=== PATIENT | female | born 1985 | race Caucasian/White ===

== ENCOUNTER 2025-01-28 08:55 | Inpatient (IN) ==
--- NOTE | 2025-01-28 09:30 | Emergency Department Note ---
History of Present Illness General Chief complaint: Abdominal Pain Stated complaint: CONSISTENT SHARP PAINS NEAR APPENDIX Time Seen by Provider: 01/28/25 09:11 History of Present Illness Maximum Pain Intensity: 7 Patient is a healthy 39-year-old female who presents to the emergency department for evaluation of right lower quadrant abdominal pain. Symptoms started about 14 hours ago. She noted mid, periumbilical abdominal pain that started around 1900 last night, and shortly thereafter began to radiate to the right lower quadrant. Pain is progressively worsened, she currently rates it a 7/10. It is worse with movement and palpation. She admits to nausea, but denies any vomiting. No urinary symptoms or stool changes. Last bowel movement was yesterday morning and was normal. No fever or chills. She did not try taking any medications for her symptoms. History of laparoscopic vaginal hysterectomy, ovaries are spared, done in 09/08. Home Medications Medication Instructions Recorded Confirmed Type oxycodone 5 mg tablet 5 - 10 mg (1 - 2 x 5 mg) PO 01/29/25 Rx .[id number] PRN pain, for initial therapy, max 6 tabs per day #12 tabs Allergies Allergy/AdvReac Type Severity Reaction Status Date / Time No Known Allergies Allergy Verified 03/09/16 01:31 Past Med/Surg History Problem List Right ovarian cyst (Acute) Follicular cyst of right ovary Appendicitis (Acute) PROM (premature rupture of membranes) Medical History No significant past medical history Surgical History History of laparoscopic-assisted vaginal hysterectomy Social History Smoking Status: Former smoker Second Hand Exposure: No; Do You Dip or Chew Tobacco: No; Hx Alcohol Use: Yes Alcohol type: beer, wine and hard liquor Hx Substance Use: No Preferred Language: Czech Communication Ability: Effective Wire Border Assembler Required: No Beliefs That Will Affect Care: None Current Living Situation: Spouse and Family Feels Safe at Home: Yes Review of Systems A total of 10 systems reviewed and were otherwise negative Physical Exam Vital Signs Vital Signs - 24 hr 01/28/25 09:07 01/28/25 09:16 01/28/25 09:21 Temperature 36.5 C Temperature Source Temporal Artery Scan Pulse Rate 96 H 92 H Pulse Rate from SpO2 Sensor 92 H Respiratory Rate 18 20 Blood Pressure 144/107 H 154/98 H Blood Pressure Mean 119 115 Pulse Oximetry 98 98 Oxygen Delivery Method Room Air Sepsis New/Unexplained Change in Mental Status No Sepsis Action Taken by Nursing No Action Required 01/28/25 09:22 01/28/25 09:30 01/28/25 09:42 Temperature Temperature Source Pulse Rate 80 68 Pulse Rate from SpO2 Sensor 68 Respiratory Rate 17 Blood Pressure 155/101 H Blood Pressure Mean 121 Pulse Oximetry 98 Oxygen Delivery Method Sepsis New/Unexplained Change in Mental Status Sepsis Action Taken by Nursing 01/28/25 09:51 01/28/25 09:57 01/28/25 10:00 Temperature Temperature Source Pulse Rate 77 73 Pulse Rate from SpO2 Sensor 78 78 Respiratory Rate 19 17 Blood Pressure 150/98 H Blood Pressure Mean 114 Pulse Oximetry 98 98 Oxygen Delivery Method Sepsis New/Unexplained Change in Mental Status Sepsis Action Taken by Nursing 01/28/25 10:06 01/28/25 10:18 01/28/25 10:30 Temperature Temperature Source Pulse Rate 68 66 Pulse Rate from SpO2 Sensor 68 66 Respiratory Rate 16 15 Blood Pressure 140/94 Blood Pressure Mean 107 Pulse Oximetry 97 97 Oxygen Delivery Method Sepsis New/Unexplained Change in Mental Status Sepsis Action Taken by Nursing 01/28/25 10:48 01/28/25 10:51 01/28/25 10:54 Temperature Temperature Source Pulse Rate 64 62 74 Pulse Rate from SpO2 Sensor 66 63 73 Respiratory Rate 16 17 19 Blood Pressure Blood Pressure Mean Pulse Oximetry 99 100 100 Oxygen Delivery Method Sepsis New/Unexplained Change in Mental Status Sepsis Action Taken by Nursing 01/28/25 11:00 Temperature Temperature Source Pulse Rate Pulse Rate from SpO2 Sensor Respiratory Rate Blood Pressure 163/104 H Blood Pressure Mean 116 Pulse Oximetry Oxygen Delivery Method Sepsis New/Unexplained Change in Mental Status Sepsis Action Taken by Nursing CONSTITUTIONAL: Patient is a well-appearing 39-year-old female who is awake and alert and laying on the gurney. is at the bedside. EYES: Pupils equal, round, reactive to light and accommodation. EOMs intact without nystagmus. Sclera are anicteric. CARDIOVASCULAR: Regular rate and rhythm. RESPIRATORY: Breath sounds equal and clear to auscultation. ABDOMEN: Bowel sounds are present. Well-healed surgical scars are noted. The abdomen is soft, nondistended, tender to percussion and palpation in the right lower quadrant with voluntary guarding. No rebound or referred rebound tenderness. No CVA tenderness. INTEGUMENTARY: No lesions or rash, normal skin turgor. LYMPH: No lymphadenopathy. Course Course The patient was seen and assessed as above. External medical records are reviewed. She presents to the emergency department for evaluation of right lower quadrant abdominal pain that started last evening. IV lock was initiated. CBC with differential, CMP, lipase and urinalysis were obtained. She was offered but declined medication for discomfort. CT scan of the abdomen and pelvis with IV contrast was ordered. Diagnostics, as interpreted by me: Laboratory studies: Normal white count at 8300, neutrophilic predominance noted. No anemia or thrombocytopenia. No significant electrolyte imbalance requiring correction, no HAN or worrisome transaminitis. Lipase is normal and urine microscopy is clear. Imaging studies: CT scan of the abdomen and pelvis with IV contrast notes acute uncomplicated appendicitis. No evidence for perforation or abscess. Incidental 2 cm right ovarian cyst noted. CT scan findings and laboratory studies reviewed with the patient and her spouse. Consultation placed with general surgery, Dr. Dougherty/Velvet Vogel PA-C. Please refer to surgical H&P for further information. They would like to admit the patient for antibiotics and monitoring. Differential diagnosis: UTI, pyelonephritis, kidney stone, appendicitis, ovarian cyst, ovarian torsion, bowel obstruction, perforation, abscess, mass or malignancy, scarring or adhesions, hernia, shingles, among others. Administered Medications Discontinued Medications Epinephrine HCl (Epinephrine Inj 1 Mg/Ml Amp) Confirm Administered Dose 1 mg .ROUTE .[employer]-MED ONE Stop: 01/29/25 07:20 Last Admin: 01/29/25 08:04 Dose: 0.1 mg Documented By: CLARENCE Hydralazine HCl (Hydralazine Hcl 20 Mg/Ml Vial) 5 mg IV Q6H PRN PRN Reason: Hypertension Stop: 02/27/25 21:36 Last Admin: 01/28/25 22:07 Dose: 5 mg Documented By: MARYANN Piperacillin Sod/Tazobactam Sod (Zosyn) 4.5 gm in 100 mls @ 25 mls/hr IV Q8H TATY; Protocol Stop: 02/01/25 17:59 Last Infusion: 01/29/25 06:05 Dose: Infused Documented By: Admin: 01/29/25 02:18 Dose: 25 mls/hr Documented By: Infusion: 01/28/25 22:08 Dose: Infused Documented By: Admin: 01/28/25 17:24 Dose: 25 mls/hr Documented By: EMEKA Sodium Chloride (Nss) 500 mls @ 100 mls/hr IV .Q5H TATY Stop: 01/28/25 16:56 Last Infusion: 01/28/25 17:32 Dose: Infused Documented By: Admin: 01/28/25 12:07 Dose: 100 mls/hr Documented By: GONSALO Piperacillin Sod/Tazobactam Sod (Zosyn) 4.5 gm in 100 mls @ 200 mls/hr IV ONE ONE; Protocol Stop: 01/28/25 12:29 Last Infusion: 01/28/25 13:08 Dose: Infused Documented By: Admin: 01/28/25 12:07 Dose: 200 mls/hr Documented By: GONSALO Lactated Ringer's (Lr) 1,000 mls @ 80 mls/hr IV .[id number] [facility] Stop: 01/30/25 09:11 Last Admin: 01/29/25 09:50 Dose: 80 mls/hr Documented By: ODILON Ioversol (Optiray 320 100ml) 94 ml IV ONCE ONE Stop: 01/28/25 10:36 Last Admin: 01/28/25 10:35 Dose: 94 ml Documented By: DANIEL Lidocaine HCl (Lidocaine 1% Local 20 Ml Vial) Confirm Administered Dose 20 ml .ROUTE .STK-MED ONE Stop: 01/29/25 07:20 Last Admin: 01/29/25 08:11 Dose: 8 ml Documented By: [id number] Morphine Sulfate (Morphine Sulfate 2 Mg/Ml Carp) 2 mg IV Q3H PRN PRN Reason: Pain (6,7,8,9,10) Stop: 02/11/25 11:56 Last Admin: 01/28/25 14:22 Dose: 2 mg Documented By: EMEKA Morphine Sulfate (Morphine Sulfate 2 Mg/Ml Carp) 2 mg IV Q2H PRN PRN Reason: Pain (6,7,8,9,10) Stop: 02/11/25 11:56 Last Admin: 01/28/25 19:50 Dose: 2 mg Documented By: MARYANN Medical Decision Making Differential Diagnosis See ED Course. Medical Records Attestation: I reviewed the patient's medical records. Home Medications Current Medication List: was personally reviewed by me Laboratory Data Attestation: I reviewed the patient's lab results. 01/29/25 05:39 01/29/25 05:39 Lab Results 01/28/25 01/28/25 Range/Units 09:21 09:40 WBC 8.31 (4.8-10.8) K/ul RBC 4.09 L (4.20-5.40) M/uL Hgb 14.0 (12.0-16.0) g/dl Hct 38.7 (37.0-47.0) % MCV 94.6 (80.0-100.0) fL MCH 34.2 H (25.0-34.0) pg MCHC 36.2 H (32.0-36.0) g/dL RDW Std Deviation 38.4 (36.4-46.3) fL RDW Coeff of Riki 11.0 L (11.5-14.5) % Plt Count 222 (130-400) K/uL MPV 9.0 L (9.4-12.4) fL Immature Gran % (Auto) 0.4 % Neut % (Auto) 78.3 % Lymph % (Auto) 14.8 % [place] % (Auto) 6.0 % Eos % (Auto) 0.1 % Baso % (Auto) 0.4 % Neut # (Auto) 6.51 H (1.40-6.50) K/uL Lymph # (Auto) 1.23 (1.20-3.40) K/uL [place] # (Auto) 0.50 (0.11-0.59) K/uL Eos # (Auto) 0.01 (0.00-0.50) K/uL Baso # (Auto) 0.03 (0.00-0.20) K/uL Immature Gran # (Auto) 0.03 (0.01-0.20) K/uL Sodium 133 L (136-145) mmol/L Potassium 3.6 (3.5-5.1) mmol/L Chloride 100 (98-107) mmol/L Carbon Dioxide 28 (21-32) mmol/L Anion Gap 5 (3-11) BUN 8 (6-23) mg/dl Creatinine 0.89 (0.6-1.2) mg/dl Est Cr Clr Drug Dosing 77.5 ml/min eGFR 84.00 BUN/Creatinine Ratio 9.0 L (10-20) Glucose 94 (70-99(Fasting)) mg/dl Calcium 9.6 (8.6-10.3) mg/dl Total Bilirubin 1.2 H (0.2-1.0) mg/dl AST 15 (13-39) U/L ALT 9 (7-52) U/L Alkaline Phosphatase 43 (34-104) U/L Total Protein 7.6 (6.0-8.3) gm/dl Albumin 4.4 (3.4-5.0) gm/dl Globulin 3.2 (2.5-4.0) gm/dl Albumin/Globulin Ratio 1.4 (0.9-2) Lipase 15 (11-82) U/L Urine Color Yellow Urine Appearance Clear (Clear) Urine pH 6.5 (4.5-7.5) Ur Specific [place] 1.011 (1.000-1.030) Urine Protein Negative (Negative) Urine Glucose (UA) Negative (Negative) Urine Ketones Negative (Negative) Urine Blood Negative (Negative) Urine Nitrite Negative (Negative) Urine Bilirubin Negative (Negative) Urine Urobilinogen Negative (Negative) Ur Leukocyte Esterase Negative (Negative) Imaging Data Attestation: I personally reviewed and interpreted this imaging study as follows: Radiologist's Impression: Abdomen/Pelvis CT 01/28/25 09:[address] WITH IV CONTRAST CT DOSE: 457.38 mGy.cm HISTORY: RLQ PAIN, HYSTER WITH PRESERVED OVARIES TECHNIQUE: Multiaxial CT images of the abdomen and pelvis were performed following the IV administration of 94 cc of Optiray, sagittal and coronal reconstructions were done. A dose lowering technique was utilized adhering to the principles of ALARA. COMPARISON STUDY: None FINDINGS: The appendix is hyperemic and there is a small amount of periappendiceal inflammatory stranding in the right lower quadrant. In addition, the patient has 2 ring-enhancing follicular cysts in the right adnexa. There is a small amount of fluid in the cul-de-sac. The uterus is absent. The left ovary is not enlarged. The lung bases and bone windows are negative for acute findings. There is mild hepatic steatosis with no focal liver lesion identified. There is a small hypoattenuating left adrenal nodule. The kidneys and spleen are unremarkable. The pancreas is unremarkable. The gallbladder and bile ducts are negative. There is no bowel obstruction or free air. There is no ascites. There is no aortic aneurysm or periaortic adenopathy. The unopacified urinary bladder1 is unremarkable. IMPRESSION: Uncomplicated appendicitis with appendiceal hyperemia and mild periappendiceal inflammatory stranding. No evidence of perforation or abscess. 2 enhancing follicular cyst in the right adnexa are likely to be incidental. Additional confidence in this opinion could be obtained with pelvic ultrasound if clinically warranted. ACT 112: Negative or not required by law. The above report was generated using voice recognition software. It may contain grammatical, syntax or spelling errors. Electronically signed by: Araceli Ruiz M.D. 01/28/2025 10:56 AM MDM Narrative See ED Course. Impression & Plan Appendicitis, Right ovarian cyst Discharge Plan Visit Data Chief Complaint: Abdominal Pain Stated Complaint: CONSISTENT SHARP PAINS NEAR APPENDIX ED Provider: Miguel Jackson ED Midlevel Provider: Mirella Joseph Discharge Problem: Appendicitis, Right ovarian cyst Patient Disposition: Admitted As Inpatient Discharge Instructions Interventions: ED Discharge Assessment Last Done: 01/28/25 11:57
[2025-01-28 10:04] LABS: Basophils # (auto) 0.03 K/uL (0.00-0.20); Basophils % (auto) 0.4 %; Eosinophils # (auto) 0.01 K/uL (0.00-0.50); Eosinophils % (auto) 0.1 %; Hematocrit (blood only) 38.7 % (37.0-47.0); Immature Granulocytes # (auto) 0.03 K/uL (0.01-0.20); Immature Granulocytes % (auto) 0.4 %; Lymphocytes # (auto) 1.23 K/uL (1.20-3.40); Lymphocytes % (auto) 14.8 %; Mean Corpuscular Hemoglobin 34.2 pg (25.0-34.0); Mean Corpuscular Hgb Conc 36.2 g/dL (32.0-36.0); Mean Corpuscular Volume 94.6 fL (80.0-100.0); Neutrophils # (auto) 6.51 K/uL (1.40-6.50); Neutrophils % (auto) 78.3 %; Platelet Count 222 K/uL (130-400); RDW Standard Deviation 38.4 fL (36.4-46.3); Red Blood Count 4.09 M/uL (4.20-5.40); White Blood Count 8.31 K/ul (4.8-10.8)
[2025-01-28 10:04] LABS: Appearance Urine Clear (Clear); Bilirubin Urine Negative (Negative); Blood Urine Negative (Negative); Color Urine Yellow; Glucose Urine UA Negative (Negative); Ketones Urine Negative (Negative); Leukocyte Esterase Urine Negative (Negative); Nitrite Urine Negative (Negative); Protein Urine Negative (Negative); Specific Gravity Urine 1.011 (1.000-1.030); Urobilinogen Urine Negative (Negative); pH Urine 6.5 (4.5-7.5)
[2025-01-28 10:29] LABS: Albumin Globulin Ratio 1.4 (0.9-2); Albumin Level 4.4 gm/dl (3.4-5.0); Bilirubin,Total 1.2 mg/dl (0.2-1.0); Calcium 9.6 mg/dl (8.6-10.3); Creatinine Clr Calc Pharmacy 77.5 ml/min; Globulin 3.2 gm/dl (2.5-4.0); Potassium 3.6 mmol/L (3.5-5.1); Total Protein 7.6 gm/dl (6.0-8.3)
[2025-01-28] MEDS: OPTIRAY 320 100ml IV ONE (10:35)
--- NOTE | 2025-01-28 10:57 | CT Scan Report ---
ABDOMEN AND PELVIS CT WITH IV CONTRAST CT DOSE: 457.38 mGy.cm HISTORY: RLQ PAIN, HYSTER WITH PRESERVED OVARIES TECHNIQUE: Multiaxial CT images of the abdomen and pelvis were performed following the IV administrat ion of 94 cc of Optiray, sagittal and coronal reconstructions were done. A dose lowering technique w as utilized adhering to the principles of ALARA. COMPARISON STUDY: None FINDINGS: The appendix is hyperemic and there is a small amount of periappendiceal inflammatory stran ding in the right lower quadrant. In addition, the patient has 2 ring-enhancing follicular cysts in t he right adnexa. There is a small amount of fluid in the cul-de-sac. The uterus is absent. The left o vary is not enlarged. The lung bases and bone windows are negative for acute findings. There is mild hepatic steatosis with no focal liver lesion identified. There is a small hypoattenuati ng left adrenal nodule. The kidneys and spleen are unremarkable. The pancreas is unremarkable. The ga llbladder and bile ducts are negative. There is no bowel obstruction or free air. There is no ascites. There is no aortic aneurysm or periao rtic adenopathy. The unopacified urinary bladder1 is unremarkable. IMPRESSION: Uncomplicated appendicitis with appendiceal hyperemia and mild periappendiceal inflammato ry stranding. No evidence of perforation or abscess. 2 enhancing follicular cyst in the right adnexa are likely to be incidental. Additional confidence in this opinion could be obtained with pelvic ultrasound if clinically warranted. ACT 112: Negative or not required by law. The above report was generated using voice recognition software. It may contain grammatical, syntax o r spelling errors. Electronically signed by: Araceli Ruiz M.D. 01/28/2025 10:56 AM
--- NOTE | 2025-01-28 11:51 | History & Physical Report ---
Date of Service January 28, 2025 Assessment & Plan (1) Appendicitis: Plan: This is a 39yF with a PSH of hysterectomy who presents to the [facility] ED on 01/28/25 with complaints of right lower quadrant abdominal pain that started yesterday evening. This was associated with nausea, no vomiting or fevers. Because of her pain she presented to the ER for evaluation. She underwent a CT a/p that revealed findings concerning for uncomplicated appendicitis with appendiceal hyperemia and mild periappendiceal inflammatory stranding. No evidence of perforation or abscess. It also shows enhancing follicular cyst in the right adnexa. Patient denies having experienced pain similar to this before. Vitals show she is hypertensive 160s/100s, HR 60-70s, she is afebrile. Labs show a normal WBC 8.3, Hbg 14, Cr 0.9. On exam patient's abdomen is soft, with mild lower abdominal bloating, and pain to palpation in the RLQ and supra pubic regions. CT scan showing concern for appendicitis along with R follicular cysts which could also be a contributing factor to her pain. We discussed the findings with the patient and recommending admitting the patient for IV abx and supportive care (IVF, prn pain and nausea control) and to see how she fairs. We will allow her clears and make her NPO at midnight in the event she will ultimately require laparoscopic appendectomy pending her ongoing clinical picture. We will follow closely. Patient seen/examined with Dr. Dougherty. (2) Follicular cyst of right ovary: History of Present Illness Primary Care Provider: Tre Carmona MD This is a 39yF with a PSH of hysterectomy in 2022 who presents to the [facility] ED on 01/28/25 with complaints of right lower quadrant abdominal pain. Patient reports her pain started yesterday evening abruptly while cooking dinner. It started off to the right side of her abdomen and is now located in the RLQ and suprapubic regions. This was associated with nausea, no vomiting or fevers. Because of her pain she presented to the ER for evaluation. She underwent a CT a/p that revealed findings concerning for uncomplicated appendicitis with appendiceal hyperemia and mild periappendiceal inflammatory stranding. No evidence of perforation or abscess. It also shows enhancing follicular cyst in the right adnexa. Patient denies having experienced pain similar to this before. Allergies Allergy/AdvReac Type Severity Reaction Status Date / Time No Known Allergies Allergy Verified 03/09/16 01:31 Home Medications Medication Instructions Recorded Confirmed Type No Known Home Medications 01/28/25 01/28/25 History Past Med/Surg History Problem List Right ovarian cyst (Acute) Follicular cyst of right ovary Appendicitis (Acute) PROM (premature rupture of membranes) Medical History No significant past medical history Surgical History History of laparoscopic-assisted vaginal hysterectomy Social History Smoking Status: Former smoker Second Hand Exposure: No; Do You Dip or Chew Tobacco: No; Tobacco Cessation Education Requested by Patient: No Hx Alcohol Use: Yes Alcohol type: beer, wine and hard liquor Hx Substance Use: No Preferred Language: Burkinan Communication Ability: Effective Auger Mill Operator Required: No Beliefs That Will Affect Care: None Current Living Situation: Spouse and Family Other Information That Helps Us Care for You: No Feels Safe at Home: Yes Safety Concerns: Feels Safe At This Time Review of Systems Constitutional: no fever and no chills Respiratory: no cough and no dyspnea Cardiovascular: no chest pain Gastrointestinal: + abdominal pain, + bloating and + nause a; no vomiting Physical Exam Physical Exam: awake, alert. tearful when palpating abdomen Constitutional: well developed and well nourished Respiratory: normal respiratory effort Cardiovascular: Rate/Rhythm: regular rate Gastrointestinal (Abdomen): Inspection/Auscultation: + abdomen distended (low abdomen bloating) Percussion/Palpation: + abdomen tender (ttp in rlq and suprapubic regions) and abdomen soft Results & Data Results & Data Vital Signs (Past 12 Hours) Vital Signs Temp Pulse Resp BP Pulse Ox O2 Del Method 01/28/25 11:00 163/104 H 01/28/25 10:54 74 19 100 01/28/25 10:51 62 17 100 01/28/25 10:48 64 16 99 01/28/25 10:30 140/94 01/28/25 10:18 66 15 97 01/28/25 10:06 68 16 97 01/28/25 10:00 150/98 H 01/28/25 09:57 73 17 98 01/28/25 09:51 77 19 98 01/28/25 09:42 68 17 98 01/28/25 09:30 155/101 H 01/28/25 09:22 80 01/28/25 09:21 92 H 20 98 01/28/25 09:16 154/98 H 01/28/25 09:07 97.7 F 96 H 18 144/107 H 98 Room Air Diagnostic Findings ABDOMEN AND PELVIS CT WITH IV CONTRAST CT DOSE: 457.38 mGy.cm HISTORY: RLQ PAIN, HYSTER WITH PRESERVED OVARIES TECHNIQUE: Multiaxial CT images of the abdomen and pelvis were performed following the IV administration of 94 cc of Optiray, sagittal and coronal reconstructions were done. A dose lowering technique was utilized adhering to the principles of ALARA. COMPARISON STUDY: None FINDINGS: The appendix is hyperemic and there is a small amount of periappendiceal inflammatory stranding in the right lower quadrant. In addition, the patient has 2 ring-enhancing follicular cysts in the right adnexa. There is a small amount of fluid in the cul-de-sac. The uterus is absent. The left ovary is not enlarged. The lung bases and bone windows are negative for acute findings. There is mild hepatic steatosis with no focal liver lesion identified. There is a small hypoattenuating left adrenal nodule. The kidneys and spleen are unremarkable. The pancreas is unremarkable. The gallbladder and bile ducts are negative. There is no bowel obstruction or free air. There is no ascites. There is no aortic aneurysm or periaortic adenopathy. The unopacified urinary bladder1 is unremarkable. IMPRESSION: Uncomplicated appendicitis with appendiceal hyperemia and mild periappendiceal inflammatory stranding. No evidence of perforation or abscess. 2 enhancing follicular cyst in the right adnexa are likely to be incidental. Additional confidence in this opinion could be obtained with pelvic ultrasound if clinically warranted. ACT 112: Negative or not required by law. The above report was generated using voice recognition software. It may contain grammatical, syntax or spelling errors. Electronically signed by: Araceil Ruiz M.D. 01/28/2025 10:56 AM Supervising Physician Co-Signing Physician Notes As per Velvet Petersen physician medical administrative assistant The patient developed some periumbilical pain migrated down towards right lower quadrant suprapubic area some nausea at the previous hysterectomy CT scan findings were reviewed her vitals also reviewed hypertension noted no past history of such may be related to pain Abdominal findings the abdomen slightly distended she does have pain in her right lower quadrant but also in the suprapubic area not well localized At this point I recommended that we try antibiotic and try to avoid surgery for etiology it is hard to differentiate whether may be related to ovarian process or the appendix she does have some fluid down in the cul-de-sac Will reevaluate her clinically and see how she does and pending those findings appropriate recommendations will be made PG Care Time/CCT Total # of Minutes Spent Total Time Spent with Patient: Total time spent is greater than 50% in coordination of care (as documented) at patient's floor/unit and/or counseling patient: Coding Level of Care Code 81858 INT INP/OBS CARE MIN Diagnoses Appendicitis K37 Follicular cyst of right ovary N83.01
[2025-01-28] MEDS ORDERED: ONDANSETRON INJ 2 MG/ML 2 ML VIAL IV PRN (11:57)
[2025-01-28] MEDS ORDERED: MoRPHine SULFATE 2 MG/ML CARP IV PRN (11:57)
[2025-01-28] MEDS ORDERED: ACETAMINOPHEN 1,000 MG/100 ML VIAL IV PRN (11:57)
[2025-01-28] MEDS: SODIUM CHLORIDE 0.9% 500 ML IV SCH (12:07)
[2025-01-28] MEDS: PIPERACILLIN/TAZOBACTAM 4.5 GM/100 ML BAG IV ONE (12:07)
[2025-01-28] MEDS: MoRPHine SULFATE 2 MG/ML CARP IV PRN ×2 (14:22→19:50)
--- OUTSIDE RECORDS SUMMARY | 2025-01-28 17:08 | External Medical Summary | Summary of Care ---
Author Name Unknown Organization [facility] Address [address] [place] [address] Phone [phone] Care Team Providers Care Manager Office Services Name Role Phone Unavailable Primary Care Provider Unavailabl e Reason for Visit * Reason Comments Allergy New Pt * Evaluate & Treat - Unlimited Visits (Within 10 days (routine)) - Pending Review Specialty Diagnoses / Procedures Referred By Kasia lorenzo Referred To Contact Allergy & Immunology / Allergy and Immunology Diagnoses Latisha Prado MD Phone: tel: fax: Referral ID Status Reason Start Date Expiration Date Visits Requested Visits Authorized [id number] Pending Review Specialty Services Required [phone] Encounter Details Date Type Department Care Team (Late st Contact Info) Description 01/06/2025 1:00 PM EST Office Visit Allergy/Immunology [facility] [place] [address] [place] [address] Mark Cruz MD [address] [place] [address] Chronic urticaria*; Pruritus Allergies No known active allergiesdocumented as of this encounter (statuses as of 01/06/2025) Medications Doxycycline Monohydrate 100 MG Oral Capsule Take 1 Capsule by mouth in the morning and 1 Capsule before bedtime. Take with meals (avoid taking with dairy products or iron supplements) and a large glass of water. Do not lie flat for 30 min after taking the medication.. 180 Capsule 4 01/06/20 25 Active Azelaic Acid 15 % External Gel (Finacea) After skin is thoroughly washed and patted dry, gently but thoroughly massage a thin film onto the affected area twice daily 30 g 7 4 Active Montelukast Sodium 10 MG Oral Tablet (Singulair) Take 1 Tablet by mouth in the morning. 90 Tablet 3 4 Active documented as of this encounter (statuses as of 01/06/2025) Active Problems Problem Noted Date Diagnosed Date Rosacea 09/07/2024 Family history of thyroid disease 09/07/2024 Hives 09/07/2024 PROM (premature rupture of membranes) 09/08/2023 Cat bite 09/08/2023 Moderate dysplasia of cervix (LIZ II) 07/02/2023 Severe dysplasia of cervix (LIZ III) 06/02/2023 Pap smear of cervix with ASCUS, cannot exclude H GSIL 06/02/2023 High grade squamous intraepi thelial lesion (HGSIL), grade 3 LIZ, on biopsy of cervix 01/16/2023 Atypical squamous cells fiordaliza ot exclude high grade squamous intraepithelial lesion on cytologic smear of cervix (ASC-H) 12/25/2022 Overview (12/25/2022): Needs colposcopy 12/20/22 PAP ASC- cannot exclude HSIL HPV neg Abdominal pain, epigastric 06/13/2021 Acute gastritis without hemorrhage 06/13/2021 Anemia 06/13/2021 Diarrhea 06/13/2021 Well adult exam 06/25/2013 Overview (10/08/2023): 10/09 heme workup for bleeding disorders WNL. h/o right sided kidney stone 07/06/2009 OCD (obsessive compulsive disorder) Generalized anxiety disorder Overview (09/26/2015): Stable, doing well, as of 2014. No meds, feels well. documented as of this encounter (statuses as of 01/06/2025) Resolved Problems Problem Noted Date Diagnosed Date Resolved Date Cellulitis 09/08/2023 09/07/2024 ADVANCE DIRECTIVE INFORMATION 01/31/2016 09/20/2024 Overview (09/21/2007): No, Advance Directive brochure offered , patient declined. Encounter for supervision of other normal 08/01/2015 03/22/2016 Overview (03/19/2016): Patient received flu vaccine. 08/29/2015 Sandy Lynn RN Had difficult time first baby, [place]. Undecided about this /baby. Had epidural last labor. Very satisfied with labor experience at [facility] last . Baby: "Jenny Santos" Patient received Tdap 02/26/2016 Marcy Fisher RN ICD-10 update of inactive term Encounter for supervision of other normal 12/31/2013 01/07/2014 Overview (03/19/2016): ICD-10 update of inactive term Encounter for supervision of other normal 08/08/2009 02/27/2010 Overview (03/19/2016): Patient received flu vaccine. 08/08/2009 Sandy Lynn RN ICD-10 update of inactive term INFORMATION 07/06/2009 12/31/2013 Anxiety state 12/25/2003 07/06/2009 Major depressive disorder 12/25/2003 Overview (09/09/2017): ICD-10 update of inactive term Encounter for surveillance o f other contraceptive 12/16/2003 07/06/2009 Overview (08/19/2019): ICD-10 update of inactive term Tobacco abuse counseling 08/2015 documented as of this encounter (statuses as of 01/06/2025) Immunizations Name Administration Dates Next Due Pneumococcal Polysaccharide PPV23 (Pneumovax) Seasonal Influenza Vac., MDV, IM, 0.5 mL (Fluzon e) 08/08/2009 Seasonal Influenza, Quadrivalent, No Preserve, I M 08/29/2015 TDAP (age 10 and older)(Boostrix) 02/26/2016,11/2014 documented as of this encounter Social History Tobacco Use Types Packs/Day Years Used Date Smoking Tobacco: Former Cigarettes 0.3 6 0 04/17/2009 - 04/17/2015 Passive Smoke Exposure: Current Smokeless Tobacco: Never Tobacco Cessation:Counseling Given: Not Answered Comments:1-2 cigs a day, quit with Alcohol Use Standard Drinks/Week Comments Yes 0 (1 standard drink = 0.6 oz pur e alcohol) occassionally PHQ-2 Answer Date Recorded PHQ Adult Total Score 0 09/07/2024 Hunger Vital Sign Answer Date Recorded Within the past 12 months, y ou worried that your food would run out before you got the money to buy more. Never true 09/07/20 24 Within the past 12 months, t he food you bought just didn't last and you didn't have money to get more. Never true 09/07/2024 Childcare Answer Date Recorded Do you feel overwhelmed with taking care of a child, family member or friend? No 09/07/2024 Does your family need help f inding childcare? (Household - for ages 0-17 years) Not on file 09/07/2024 Clothing Answer Date Recorded Have you been unable to get clothing when it was really needed? No 09/07/2024 Is your family able to get c lothes or diapers when needed? (Household - for ages 0-17 years) Not on file 09/07/2024 Personal Safety Answer Date Recorded Do you feel unsafe or have concerns for your saf ety? No 09/07/2024 Do you have concerns for you r family's safety? (Household - for ages 0-17 years) Not on file 09/07/2024 Utilities Answer Date Recorded Do you have trouble paying y our heating, water, or electric bill? No 09/07/2024 Is your family able to pay t he heat, water, or electric bill? (Household - for ages 0-17 years) Not on file 09/07/2024 Does your family have access to good internet? (Household - for ages 0-17 years) Not on file 09/07/2024 Employment Status Answer Date Recorded Are you unemployed or without regular income? No 09/07/2024 Does the household have a re gular source of income? (Household - for ages 0-17 years) Not on file 09/07/2024 Social Connections Answer Date Recorded How often do you feel lonely or isolated from th ose around you? Never 09/07/2024 Financial Resource Strain Answer Date R ecorded Do you have any trouble payi ng for your medications, or do you think you might in the future? No 09/07/2024 Does your family have troubl e paying for medicine? (Household - for ages 0-17 years) Not on file 09/07/2024 Transportation Needs Answer Date Record ed Do you have trouble getting a ride to medical visits or work? (Adult - for ages 18 years and over) Not on file 09/07/2024 Does your family have a hard time getting a ride to doctors visits? (Household - for ages 0-17 years) Not on file 09/07/2024 Has lack of transportation k ept you from medical appointments, meetings, work, or from getting things needed for daily living? Check all that apply. No 09/07/2024 Do you (or your family) have trouble finding or paying for a ride (transportation)? (Household - for ages 0-17 years) Not on file 09/07/2024 Housing Stability Answer Date Recorded Do you currently live in a s helter or have no steady place to sleep at night? No 09/07/2024 Do you think you are at risk of becoming homeless? (Adult - for ages 18 years and over) Not on file 09/07/2024 Does your family worry about paying for your home or becoming homeless? (Household - for ages 0-17 years) Not on file 1 Are you homeless or worried that you might be in the future? No 09/07/2024 Are you (or your family) aron eless or worried that you might be in the future? (Household - for ages 0-17 years) Not on file Food Insecurity Answer Date Recorded Do you need food for this week? No 09/07/2024 Are you able to get enough f ood for your family? (Household - for ages 0-17 years) Not on file 09/07/2024 Does your family need food t his week? (Household - for ages 0-17 years) Not on file 09/07/2024 Do you always have enough fo od for your family? (Household - for ages 0-17 years) Not on file 09/07/2024 Food Insecurity Answer Date Recorded Within the past 12 months, y ou worried that your food would run out before you got the money to buy more. Never true 09/07/20 24 Within the past 12 months, t he food you bought just didn't last and you didn't have money to get more. Never true 09/07/2024 Do you need food for this week? 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 Answer Date of Assessment Author No 08/27/2023 3:05 PM Dior Nelson RN * Are you blind or do you have serious difficulty seeing, even when wearing glasses? Answer Date of Assessment Author No 08/27/2023 3:05 PM Dior Nelson RN * Do you have serious difficulty walking or climbing stairs? (5 years old or older) Answer Date of Assessment Author No 08/27/2023 3:05 PM Dior Nelson RN * Do you have difficulty dressing or bathing? (5 years old or older) Answer Date of Assessment Author No 08/27/2023 3:05 PM Dior Nelson RN * Because of a physical, mental, or emotional condition, do you have difficulty doing errands alone such as visiting a doctors office or shopping? (15 years old or older) Answer Date of Assessment Author No 08/27/2023 3:05 PM Dior Nelson RN documented as of this encounter Mental Status * Because of a physical, mental, or emotional condition, do you have serious difficulty concentrating, remembering, or making decisions? (5 years old or older) Answer Entry Date Author No 08/27/2023 3:05 PM Dior Nelson RN documented in this encounter Progress Notes * Mark Cruz MD - 01/06/2025 12:47 PM EST REASON FOR VISIT: Chief Complaint Patient presents with Allergy New Pt HPI: Delma is a pleasant 39-year-old female who presents to our office as a new patient after being referred by Latisha Benton MD for initial consultation of urticaria. The patient reports that starting in June of 2024, she has been experiencing hives. She states that this started at work but it can occur at any place including work home or any other location. She states that originally, her hives occurred on a daily basis. Currently, they are still occurring but now approximately 3 times perweek. Her hives typically last only 10 minutes if she applies hydrocortisone immediately. She is unsure how long the hives would last if she did not apply hydrocortisone. Typically the hives will occur on her neck, back, and upper chest. Occasionally she will get them on her lower extremities. She has not experienced any lip swelling, tongue swelling, nor throat involvement. She at 1st attributedto stress a sometimes she will have stressful days in the hives would not occur. This was discussedwith her primary care practitioner who put her on Singulair 10 mg daily. The patient reports that the Singulair has not been effective at all and provide 0% relief. She has not tried any other treatments other than hydrocortisone and Singulair. Upon further questioning, she reports no association with her environment and there have been no changes to her environment. She will occasionally get signs and symptoms of allergic rhinitis in the spring but no symptoms during other times of the year. She reports no association with any foods nor medications. She reports no association with insect stings. As noted above, there may be a slight association with stress/anxiety. She reports no hormonal changes nor relation with NSAIDs. She does occasionally take ibuprofen for her neck and back that has not seen worsening of her urticaria with ibuprofen. She does state that is scratching, pressure, and friction are aggravating factors. She reports no relation to heat/humidity nor colder temperatures. She reports no recent illnesses. She has no history of autoimmunity. REVIEW OF SYSTEMS Skin: itching, hives Eyes: negative Ears/Nose/Throat: negative Respiratory: No history of cough, wheezing, chest tightness or shortness of breath and No history of bronchial asthma Cardiovascular: negative Gastrointestinal: No history of heartburn, dyspepsia, or acid reflux disease. Genitourinary: negative Musculoskeletal: pt denies significant joint pain or stiffness Neurologic: negative Psychiatric: negative Hematologic/Lymphatic/Immunologic: negative Endocrine: negative Constitutional: none Past Medical History: Diagnosis Date Calculus of kidney 11/17/2004 right sided Closed fracture of carpal bone 11/19/1994 wrist fracture left Generalized anxiety disorder 11/17/2014 stopped for High grade squamous intraepithelial lesion (HGSIL), grade 3 LIZ, on biopsy of cervix Idiopathic scoliosis Scoliosis, no bracing or surgery needed INFORMATION 16 mono OCD (obsessive compulsive disorder) Tobacco abuse counseling Varicella without complication age 6 Past Surgical History: Procedure Laterality Date , INDUCED BY D&E 01/10/2014 D&E x3, last 12/03/03 CYSTOSCOPY N/A 08/27/2023 CYSTOURETHROSCOPY performed by Jolynn Valentine MD at OR [facility] DENTAL SURGERY PROCEDURE NEC LAPAROSCOPY TOTAL HYSTX, UTERUS 250GM OR LESS TUBE/OVARY Bilateral 08/27/2023 LAPAROSCOPIC HYSTERECTOMY REMOVAL TUBES AND/OR OVARIES FOR UTERUS 250GM OR LESS performed by Jolynn Valentine MD at OR [facility] PARTIAL HYSTERECTOMY 08/2023 Current Outpatient Medications Medication Sig Dispense Refill Doxycycline Monohydrate 100 MG Oral Capsule Take 1 Capsule by mouth in the morning and 1 Capsule before bedtime. Take with meals (avoid taking with dairy products or iron supplements) and a large glass of water. Do not lie flat for 30 min after taking the medication.. 180 Capsule 0 Montelukast Sodium 10 MG Oral Tablet (Singulair) Take 1 Tablet by mouth in the morning. 90 Tablet 3 Azelaic Acid 15 % External Gel (Finacea) After skin is thoroughly washed and patted dry, gently butthoroughly massage a thin film onto the affected area twice daily 30 g 7 No current facility-administered medications for this visit. Allergies as of 01/06/2025 (No Known Allergies) Family History Problem Relation Name Age of Onset Other (Other) Mother Hepatitis C No Known Problems Father Rheum arthritis Sister No Known Problems Daughter No Known Problems Daughter Osteoporosis Grandmother (Maternal) Other (Other) Grandfather (Maternal) MVA No Known Problems Grandmother (Paternal) No Known Problems Grandfather (Paternal) Breast Cancer No significant family history Social History Socioeconomic History Marital status: Single Spouse name: Not on file Number of children: Not on file Years of education: Not on file Highest education level: Not on file Occupational History 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 Comment: bobby 01/21/23 Other Topics Concern Service Not Asked Blood Transfusions Not Asked Caffeine Concern Not Asked Occupational Exposure Not Asked Hobby Hazards Not Asked Sleep Concern Not Asked Stress Concern Not Asked Weight Concern Not Asked Special Diet Not Asked Back Care Not Asked Exercise No Bike Helmet Not Asked Seat Belt No Comment: sometimes Self-Exams No Comment: breast Social History Narrative Works in [employer] Studying for [employer]. Fall 2012 Social Needs Financial Resource Strain: Low Risk (09/07/2024) Financial Resource Strain Do you have any trouble paying for your medications, or do you think you might in the future? (Adult - for ages 18 years and over): No Does your family have trouble paying for medicine? (Household - for ages 0-17 years): Not on file Food Insecurity: No Food Insecurity (09/07/2024) Food Insecurity Worried About Running Out of Food in the Last Year: Never true Ran Out of Food in the Last Year: Never true Do you need food for this week? (Adult - for ages 18 years and over): No Transportation Needs: No Transportation Needs (09/07/2024) Transportation Needs Do you have trouble getting a ride to medical visits or work? (Adult - for ages 18 years and over):Not on file Does your family have a hard time getting a ride to doctors visits? (Household - for ages 0-17 years): Not on file Has lack of transportation kept you from medical appointments, meetings, work, or from getting things needed for daily living? Check all that apply. (Adult - for ages 18 years and over): No Do you (or your family) have trouble finding or paying for a ride (transportation)? (Household - for ages 0-17 years): Not on file Social Connections: Socially Integrated (09/07/2024) Social Connections How often do you feel lonely or isolated from those around you? (Adult - for ages 18 years and over): Never Housing Stability: Low Risk (09/07/2024) Housing Stability Do you currently live in a long-term or have no steady place to sleep at night? (Adult - for ages 18 years and over): No Do you think you are at risk of becoming homeless? (Adult - for ages 18 years and over): Not on file Does your family worry about paying for your home or becoming homeless? (Household - for ages 0-17 years): Not on file Are you homeless or worried that you might be in the future? (Adult - for ages 18 years and over): No Are you (or your family) homeless or worried that you might be in the future? 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 She has 2 children, ages 14 and 8. BP 118/74 | Pulse 72 | Resp 16 | Wt 59 kg (130 lb) | LMP (LMP Unknown) | SpO2 99% | BMI 21.30 kg/m | BSA 1.65 m PHYSICAL EXAM: GENERAL: No acute distress. HEAD AND FACE: No sinus tenderness noted EYES: EOMI, PERRLA; Conjunctiva- normal; Eyelids - normal EARS: TM's - clear NOSE:Pale mucosa; mild Inferior and Middle turbinate edema; no nasal polyps or mucopus; Septum - normal OROPHARYNX: Teeth and gums - normal; Mild erythema, no cobblestoning; No lesions, exudates NECK: Supple; No thyroid enlargment or cervical adenopathy RESPIRATORY: Clear to A and P; No wheezes; Good air movement bilaterally; No intercostal retractions or accessory muscle use CARDIOVASCULAR: RRR; No gallops, rubs, clicks, or murmurs. GASTROINTESTINAL: Abdomen is soft and non-tender; BS - normal; No palpable masses or organomegaly LYMPHATIC: No significant adenopathy noted MUSCULOSKELETAL: No significant joint swelling, tenderness EXTREMITIES: No cyanosis, clubbing or peripheral edema SKIN: No evidence atopic dermatitis; no urticaria or angioedema; Normal skin quality with the exception of rosacea; urticarial lesions noted from pictures on smart phone NEUROLOGIC/PSYCHIATRIC: Mental status - Oriented x's 3; Mood and affect - normal ASSESSMENT AND PLAN: ICD-10-CM 1. Chronic urticaria L50.8 2. Pruritus L29.9 In summary, Delma carries a diagnosis of chronic spontaneous urticaria based upon her clinical history. We did review that this is thought to be an autoimmune process that leads to the release of histamine by mast cells in his skin which then leads to urticaria, pruritus, and occasionally angioedema. Generally no external allergic cause or contributing underlying disease is attributed to this.Hence, allergy testing to the environment and/or foods does not provide benefit and is typically not indicated as this is due to autoimmunity. We did review that there are aggravating factors that can lead to further histamine release and flare-ups. This includes physical triggers such as tight clothing, sweating, exercise, pressure, heat, and friction. Other aggravating factors can include stress/anxiety, infections/illnesses, surgeries of any kind, fluctuating hormones, and the use of NSAID medications such as ibuprofen. Should she see worsening urticaria or flare-ups of her urticaria with ibuprofen. She is instructed to perhaps so to acetaminophen for pain relief. Other possible aggravating factors do include high histamine foodssuch as tomatoes, citrus, strawberries, aged cheeses, spicy foods, and alcohol. Finally if the patient has other autoimmune processes that are ongoing, lack of control of those autoimmune processes can lead to worsening urticaria. We did review that the overall goal of treatment is to control the urticaria but not cure the urticaria. The goal would be proper control so it does not affect the patient's activities of daily living such as sleep, work, social activities, and family activities. The mainstay of treatment includes oral antihistamines and we reviewed that these medications are not being used to treat an allergic process but they are being used to treat the histamine release process from this autoimmune disorder.Hence the patient will start with fexofenadine 180 mg daily. Should there still be lack of control of her urticaria, she will then add in cetirizine 10 mg at nighttime. Thank you very much for allowing myself to participate in the care of your patient. Please do not hesitate to contact our office should you have any questions or concerns. Mark Cruz MD Allergy/Immunology I spent a total of 40-54 minutes (exact time 48 mins) on the date of service in preparation, delivery, and documentation of the care provided to Delma Aiken excluding any time spent in the performance of separately billed services or time spent by another provider/QHP. (This note was completed using the dictation program Fluency Direct. As such, there may be misspellings, word substitutions, or other variations that should not change the essence of the clinical content of this encounter note.If there is need for further clarification, please direct questions to the provider listed above.) PCP: documented in this encounter Nursing Notes * Marcy Rubi LPN - 01/06/2025 12:41 PM EST The pt has been properly identified by confirmation of name and date of . Pt presents as a new pt for hives since Jun. documented in this encounter Plan of Treatment Upcoming Encounters Date Type Department Care Team (Late st Contact Info) Description 03/09/2025 3:30 PM EDT Office Visit Allergy/Immunology [facility] [address] [place] [id number] Yi Loomis PA-C [address] [place] [id number] Scheduled Referrals Name Type Priority Associated Diagnoses Orde r Schedule ALLERGY REFERRAL OP Referral Within 10 da ys (routine) Hives Ordered: 09/07/2024 Health Maintenance Due Date Last Done Comments COVID-19 Vaccine ( season) 2024 Influenza Vaccine (FLU shot) (#1) 2024 08/31/2015, 08/29/2015, 08/08/2009 Depression Screening 09/07/2025 09/07/2024 Mammogram 09/22/2025 09/22/2024 Pap Smear 12/09/2025 12/09/2022, 03/18, 12/31/2013, Additional history exists DTap/Tdap Vaccines (4 - Td or Tdap) 02/25/2026 02/26/2016, 03/17/2015, 08/21/1995 Lipid Panel 06/13/2026 06/13/2021 Cervical Cancer Screening 12/09/2027 HPV/Co-Test 12/09/2027 12/09/2022 Hepatitis B Vaccine Completed 03/24/1996, 11/11/1995, 10/10/1995 Hepatitis C Screening Completed 10/05/2002 Pneumococcal Vaccine: Pediatrics (0 to 5 Years) and At-Risk Patients (6 to 18 Years and 19+ Years) Aged Out 08/04/2013 No longer eligib le based on patient's age to complete this topic HPV (Gardasil) Vaccine Aged Out No lo nger eligible based on patient's age to complete this topic MENINGOCOCCAL (MENACTRA/MENVEO) Aged Out No longer eligible based on patient's age to complete this topic Meningitis B Vaccine (Bexsero/Trumemba) Aged Out No longer eligible based on patient's age to complete this topic documented as of this encounter Medical Devices Not on filedocumented as of this encounter Visit Diagnoses Diagnosis Chronic urticaria- Primary Other specified urticaria Pruritus Unspecified pruritic disorder documented in this encounter Advance Directives * Full Code (Latest Code Status on File) Date Activated Date Inactivated Comments 08/27/2023 1:54 PM 08/28/2023 7:51 PM This order reflects the patients wishes and were consensually agreed upon. Question Answer Comments Discussion of Advance Directives occurred with: Patient
--- OUTSIDE RECORDS SUMMARY | 2025-01-28 17:09 | External Medical Summary ---
Author Name Unknown Address Unknown Organization [id number]:[facility] [place] [address] [facility] [id number] Laboratory Report Ordering Provider Test Date Status EULALIA TORO 09/07/2024 09:37:51 Final Deficient: <20 ng/mL
Ins ufficient: 20-29 ng/mL
Recommended/Optimum:30-50 ng/mL

Vitamin D intoxication is rare. If suspicious of Vitamin D toxicity, evaluation of serum Calcium and PTH is recommended. Observation Date Value Abnormality Reference (Units ) Status 25-OH Vitamin D total 09/07/2024 09:37:51 30 >19 (ng/mL) Final [facility]forming [facility] [address] [facility] [id number]
--- OUTSIDE RECORDS SUMMARY | 2025-01-28 17:09 | External Medical Summary | Summary of Care ---
Author Name Unknown Organization [facility] Address [address] [place] [address] Phone [phone] Care Team Providers Care Loom Changer Name Role Phone Tre Carmona MD Primary Care Provider + Reason for Referral * Evaluate & Treat - Unlimited Visits (Within 10 days (routine)) - Pending Review Specialty Diagnoses / Procedures Referred By Kasia lorenzo Referred To Contact Allergy & Immunology / Allergy and Immunology Diagnoses Latisha Prado MD [address] [place] [address] Referral ID Status Reason Start Date Expiration Date Visits Requested Visits Authorized [id number] Pending Review Specialty Services Required [phone] Question Answer Referral Priority Within 10 days (routine) Where should this appointment be scheduled? [facility] For what condition is the patient being referred? Anaphylaxis/Angioedema/Urticaria Reason for Visit * Reason Comments NEW PATIENT Pt here today as a n ew pt. Pt here today due to getting hives since June and has gotten worse since she started a new medication in 07/26/2024 Encounter Details Date Type Department Care Team (Latest Contact Info) Description 09/07/2024 8:40 AM EDT Office Visit [facility] [address] [place] [phone] Latisha Benton MD [address] [place], [place] [id number] Encounter for screening mammogram for malignant neoplasm of breast*; Well adult exam; High grade squamous intraepithelial lesion (HGSIL), grade 3 LIZ, on biopsy of cervix; Generalized anxiety disorder; Hives; Encounter for screening mammogram for breast cancer; Family history of thyroid disease; Rosacea Allergies No known active allergiesdocumented as of this encounter (statuses as of 09/07/2024) Medications Medication Sig Dispensed Refills Start Date End Date Status Doxycycline Monohydrate 100 MG Oral Capsule Take 1 Capsule by mouth in the morning and 1 Capsule before bedtime. Take with meals (avoid taking with dairy products or iron supplements) and a large glass of water. Do not lie flat for 30 min after taking the medication.. 180 Capsule 07/26/2024 Active Azelaic Acid 15 % External Gel (Finacea) After skin is thoroughly washed and patted dry, gently but thoroughly massage a thin film onto the affected area twice daily 30 g 7 07/26/2024 Active Montelukast Sodium 10 MG Oral Tablet (Singulair) Take 1 Tablet by mouth in the morning. 90 Tablet 3 09/07/2024 Active metroNIDAZOLE 1 % External Gel (Metrogel)Indicat ions:Rosacea Apply to full face at night 45 g 2 04/19/2021 4 Discontinue d(Patient preference/ discontinua tion) Iron-Vitamin C 65-125 MG Oral Tablet (Vitron C) Take 1 Tablet by mouth in the morning. 60 Tablet 3 08/28/2023 4 Discontinue d(Patient preference/ discontinua tion) documented as of this encounter (statuses as of 09/07/2024) Active Problems Problem Noted Date Diagnosed Date [...] on cytologic smear of cervix (ASC-H) 12/25/2022 Overview: Needs colposcopy 12/20/22 PAP ASC- cannot exclude HSIL HPV neg Abdominal pain, epigastric 06/13/2021 Acute gastritis without hemorrhage 06/13/2021 Anemia 06/13/2021 Diarrhea 06/13/2021 ADVANCE DIRECTIVE INFORMATION 01/31/2016 Overview: No, Advance Directive brochure offered , patient declined. Well adult exam 06/25/2013 Overview: 10/09 heme workup for bleeding disorders WNL. h/o right sided kidney stone 07/06/2009 OCD (obsessive compulsive disorder) Generalized anxiety disorder Overview: Stable, doing well, as of 2014. No meds, feels well. documented as of this encounter (statuses as of 09/07/2024) Resolved Problems Problem Noted Date Diagnosed Date Resolved Date Cellulitis 09/08/2023 09/07/2024 Encounter for supervision of other normal 08/01/2015 03/22/2016 Overview: Patient received flu vaccine. 08/29/2015 Sandy Lynn RN Had difficult time first baby, [place]. Undecided about this /baby. Had epidural last labor. Very satisfied with labor experience at [facility] last . Baby: "Jenny Santos" Patient received Tdap 02/26/2016 Marcy Fisher RN ICD-10 update of inactive term Encounter for supervision of other normal 12/31/2013 01/07/2014 Overview: ICD-10 update of inactive term Encounter for supervision of other normal 08/08/2009 02/27/2010 Overview: Patient received flu vaccine. 08/08/2009 Sandy Lynn RN ICD-10 update of inactive term INFORMATION 07/06/2009 12/31/2013 Anxiety state 12/25/2003 07/06/2009 Major depressive disorder 12/25/2003 Overview: ICD-10 update of inactive term Encounter for surveillance o f other contraceptive 12/16/2003 07/06/2009 Overview: ICD-10 update of inactive term Tobacco abuse counseling 08/2015 documented as of this encounter (statuses as of 09/07/2024) Immunizations Name Administration Dates Next Due Pneumococcal [...] Date Recorded PHQ Adult Total Score 0 06/13/2021 Hunger Vital Sign Answer Date Recorded Within the past 12 months, y ou worried that your food would run out before you got the money to buy more. Never true 05/07/20 23 Within the past 12 months, t he food you bought just didn't last and you didn't have money to get more. Never true 05/07/2023 Childcare Answer Date Recorded Do you feel overwhelmed with taking care of a child, family member or friend? No 05/07/2023 Does your family need help f inding childcare? (Household - for ages 0-17 years) Not on file 05/07/2023 Clothing Answer Date Recorded Have you been unable to get clothing when it was really needed? No 05/07/2023 Is your family able to get c lothes or diapers when needed? (Household - for ages 0-17 years) Not on file 05/07/2023 Personal Safety Answer Date Recorded Do you feel unsafe or have concerns for your saf ety? No 08/27/2023 Do you have concerns for you r family's safety? (Household - for ages 0-17 years) Not on file 08/27/2023 Utilities Answer Date Recorded Do you have trouble paying y our heating, water, or electric bill? No 08/27/2023 Is your family able to pay t he heat, water, or electric bill? (Household - for ages 0-17 years) Not on file 08/27/2023 Does your family have access to good internet? (Household - for ages 0-17 years) Not on file 08/27/2023 Employment Status Answer Date Recorded Are you unemployed or without regular income? No 05/07/2023 Does the household have a re lar source of income? (Household - for ages 0-17 years) Not on file 05/07/2023 Social Connections Answer Date Recorded How often do you feel lonely or isolated from those around you? (Adult - for ages 18 years and over) Not on file 05/11/2024 Financial Resource Strain Answer Date R ecorded Do you have any trouble payi ng for your medications, or do you think you might in the future? No 05/07/2023 Does your family have troubl e paying for medicine? (Household - for ages 0-17 years) Not on file 05/07/2023 Transportation Needs Answer Date Record ed READ ONLY Do you have troubl e getting a ride to medical visits or work? Never True 08/27/2023 Does your family have a hard time getting a ride to doctors visits? (Household - for ages 0-17 years) Not on file 08/27/2023 Has lack of transportation k ept you from medical appointments, meetings, work, or from getting things needed for daily living? Check all that apply. (Adult - for ages 18 years and over) Not on file 08/27/2023 Do you (or your family) have trouble finding or paying for a ride (transportation)? (Household - for ages 0-17 years) Not on file 08/27/2023 Housing Stability Answer Date Recorded Do you currently live in a s helter or have no steady place to sleep at night? (Adult - for ages 18 years and over) Not on file 08/27/2023 READ ONLY Do you think you a re at risk of becoming homeless? No 08/27/2023 Does your family worry about paying for your home or becoming homeless? (Household - for ages 0-17 years) Not on file 1 Are you homeless or worried that you might be in the future? (Adult - for ages 18 years and over) Not on file Are you (or your family) aron eless or worried that you might be in the future? (Household - for ages 0-17 years) Not on file Food Insecurity Answer Date Recorded Do you need food for this week? No 08/27/2023 Are you able to get enough f ood for your family? (Household - for ages 0-17 years) Not on file 08/27/2023 Does your family need food t his week? (Household - for ages 0-17 years) Not on file 08/27/2023 Do you always have enough fo od for your family? (Household - for ages 0-17 years) Not on file 08/27/2023 Sex and Gender Information Value Date Recorded Sex Assigned at Female 05/07/2023 11:06 AM EDT Gender Identity Female 05/07/2023 11:06 AM EDT Sexual Orientation Straight 05/07/2023 11 :06 AM EDT Job Start Date Occupation Industry Not on file Not on file Not on file documented as of this encounter Last Filed Vital Signs Vital Sign Reading Time Taken Comments Blood Pressure 112/72 09/07/2024 8:37 AM EDT Pulse 85 09/07/2024 8:37 AM EDT Temperature 36.1 C (96.9 F) 09/07/2024 8:37 AM ED T Respiratory Rate 18 09/07/2024 8:37 AM EDT Oxygen Saturation 99% 09/07/2024 8:37 AM EDT Inhaled Oxygen Concentration - - Weight 56 kg (123 lb 6.4 oz) 09/07/2024 8:37 AM EDT Height 166.4 cm (5' 5.5") 09/07/2024 8:37 AM EDT Body Mass Index 20.22 09/07/2024 8:37 AM EDT documented in this encounter Functional Status Functional Status Response Date of Assess ment Are you deaf or do you have serious difficulty h earing? No 08/27/2023 Are you blind or do you have serious difficulty seeing, even when wearing glasses? No 08/27/2023 Do you have serious difficul ty walking or climbing stairs? (5 years old or older) No 08/27/2023 Do you have difficulty dress ing or bathing? (5 years old or older) No 08/27/2023 Because of a physical, menta l, or emotional condition, do you have difficulty doing errands alone such as visiting a doctor s office or shopping? (15 years old or older) No 08/27/20 Cognitive Status Response Date of Assessm ent Because of a physical, menta l, or emotional condition, do you have serious difficulty concentrating, remembering, or making decisions? (5 years old or older) No 08/27/2023 documented as of this encounter Patient Instructions * Patient Instructions* Latisha Benton MD - 09/07/2024 8:41 AM EDT Images from the original note were not included. Trial singulair 10 mg daily and update me in 2 wks Start food diary Might consider thyroid US Probiotic daily Mammography Mammography is an X-ray exam of your breast tissue. The image it makes is called a mammogram. A mammogram can help find problems with your breasts, such as cysts or cancer. Mammography is the best breast cancer screening tool available. Have screening mammograms and professional breast exams as often as your healthcare provider recommends. Also, be sure you know how your breasts normally look and feel. This makes it easier to noticeany changes. Report changes to your healthcare provider as soon as possible. How do I get ready for a mammogram? Schedule the test for 1 week after your period. Your breasts are less sore then. Make sure your clinic gets images of your last mammogram if it was done somewhere else. This lets the provider compare the 2 sets of images for any changes. On the morning of your test, dont use deodorant, powder, or perfume. Wear a top that you can take off easily. What happens during a mammogram? You will need to undress from the waist up. The technologist will position your breast to get the best test results. Each of your breasts will be compressed one at a time. This helps get the most complete X-ray image. Your breasts will be repositioned to get at least 2 separate views of each breast. What happens after a mammogram? More X-rays are sometimes needed. If not done at the time of your initial mammogram, youll be called to schedule them. You should receive your test results in writing. Ask about this on the day of your appointment. Have mammograms as often as your healthcare provider recommends. Let the technologist know if: Youre or think you may be You have breast implants You have any scars or moles on or near your breasts Youve had a breast biopsy or surgery Youre Date Last Reviewed: 04/17/201719998298-8297 [employer]. [address] [place] [address]. All rights reserved. This information is not intended as a substitute for professional medical care. Always follow your healthcare professional's instructions documented in this encounter Progress Notes * Latisha Benton MD - 09/07/2024 9:11 AM EDT Subjective Delma Aikne is a 39 year old female. Chief Complaint Patient presents with NEW PATIENT Pt here today as a new pt. Pt here today due to getting hives since June and has gotten worse since she started a new medication in 07/26/2024 HPI: Patient is new here for PCP establishment and for medical management of known PMH as below. Would like to get mammogram F/u with [facility], s/p hysterectomy due to cervical lesion No known family hx of cancer Weight stable Noticed severe generalized hives , it happened in the past but nowadays, she has been feeling itching or hives several times per day No diet change or living conditions Rosacea - fu with derm Taking doxy ( her hives started before taking doxy ) Also uses top gel Anxiety - stable mild PMH: Patient Active Problem List Diagnosis ADVANCE DIRECTIVE INFORMATION h/o right sided kidney stone Well adult exam OCD (obsessive compulsive disorder) Generalized anxiety disorder Abdominal pain, epigastric Acute gastritis without hemorrhage Anemia Diarrhea Atypical squamous cells cannot exclude high grade squamous intraepithelial lesion on cytologic smear of cervix (ASC-H) High grade squamous intraepithelial lesion (HGSIL), grade 3 LIZ, on biopsy of cervix Severe dysplasia of cervix (LIZ III) Pap smear of cervix with ASCUS, cannot exclude HGSIL Moderate dysplasia of cervix (LIZ II) PROM (premature rupture of membranes) Cat bite Rosacea Family history of thyroid disease Hives Current Outpatient Medications Medication Sig Dispense Refill Doxycycline Monohydrate 100 MG Oral Capsule Take 1 Capsule by mouth in the morning and 1 Capsule before bedtime. Take with meals (avoid taking with dairy products or iron supplements) and a large glass of water. Do not lie flat for 30 min after taking the medication.. 180 Capsule 0 Azelaic Acid 15 % External Gel (Finacea) After skin is thoroughly washed and patted dry, gently butthoroughly massage a thin film onto the affected area twice daily 30 g 7 Montelukast Sodium 10 MG Oral Tablet (Singulair) Take 1 Tablet by mouth in the morning. 90 Tablet 3 No current facility-administered medications for this visit. Past Medical History: Diagnosis Date Calculus of [...] performed by Jolynn Valentine MD at OR [facility] DENTAL SURGERY PROCEDURE NEC LAPAROSCOPY TOTAL HYSTX, UTERUS 250GM OR LESS TUBE/OVARY Bilateral 08/27/2023 LAPAROSCOPIC HYSTERECTOMY REMOVAL TUBES AND/OR OVARIES FOR UTERUS 250GM OR LESS performed by Jolynn Valentine MD at OR [facility] Review of patient's allergies indicates: No Known Allergies Family History Problem Relation Name Age of Onset Other (Other) Mother Hepatitis C No Known Problems Father Rheum arthritis Sister Osteoporosis Grandmother (Maternal) Other (Other) Grandfather (Maternal) MVA No Known Problems Grandmother (Paternal) No Known Problems Grandfather (Paternal) No Known Problems Daughter No Known Problems Daughter Family Status Relation Status Mo Alive depression, on meds Fa never sees Sis Alive MGMA Alive MGFA PGMA (Not Specified) PGFA (Not Specified) Sol Alive Sol Alive Social History Socioeconomic History Marital status: Single Spouse name: Not on file Number of children: Not on file Years of education: Not on file Highest education level: Not on file Occupational History 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 (Adult - for ages 18 years and over): No Does your family have trouble paying for medicine? (Household - for ages 0-17 years): Not on file Food Insecurity: No Food Insecurity (09/07/2024) Food Insecurity Do you need food for this week? (Adult - for ages 18 years and over): No Are you able to get enough food for your family? (Household - for ages 0-17 years): Not on file Does your family need food this week? (Household - for ages 0-17 years): Not on file Do you always have enough food for your family? (Household - for ages 0-17 years): Not on file Transportation Needs: No Transportation Needs (09/07/2024) Transportation [...] Stability Do you currently live in a prison or have no steady place to sleep [...] - for ages0-17 years): Not on file Review of Systems Constitutional: Negative for activity change, appetite change, chills, diaphoresis, fatigue, fever and unexpected weight change. HENT: Positive for congestion. Negative for ear pain, postnasal drip, rhinorrhea, sinus pressure, sinus pain, sneezing, sore throat, tinnitus, trouble swallowing and voice change. Eyes: Negative for visual disturbance. Respiratory: Negative for cough, chest tightness, shortness of breath and wheezing. Cardiovascular: Negative for chest pain, palpitations and leg swelling. Gastrointestinal: Negative for abdominal distention, abdominal pain, constipation, diarrhea, nauseaand vomiting. Endocrine: Negative. Genitourinary: Negative for genital sores and hematuria. Musculoskeletal: Negative for arthralgias. Allergic/Immunologic: Positive for environmental allergies. Negative for food allergies and immunocompromised state. Neurological: Negative for dizziness, weakness and headaches. Psychiatric/Behavioral: Negative for agitation, behavioral problems, dysphoric mood and sleep disturbance. The patient is not nervous/anxious. Objective BP 112/72 | Pulse 85 | Temp 36.1 C (96.9 F) (Tympanic) | Resp 18 | Ht 1.664 m (5' 5.5") | Wt 56kg (123 lb 6.4 oz) | LMP (LMP Unknown) | SpO2 99% | BMI 20.22 kg/m | BSA 1.61 m Physical Exam Constitutional: General: She is not in acute distress. Appearance: Normal appearance. She is not ill-appearing, toxic-appearing or diaphoretic. HENT: Head: Normocephalic and atraumatic. Ears: Comments: Fluid bulging TMs Nose: Nose normal. Eyes: Extraocular Movements: Extraocular movements intact. Neck: Comments: Slightly enlarged thyroid gland ? Cardiovascular: Rate and Rhythm: Normal rate and regular rhythm. Pulses: Normal pulses. Heart sounds: Normal heart sounds. No murmur heard. Pulmonary: Effort: Pulmonary effort is normal. No respiratory distress. Breath sounds: Normal breath sounds. No stridor. No wheezing, rhonchi or rales. Chest: Chest wall: No tenderness. Musculoskeletal: General: Normal range of motion. Cervical back: Normal range of motion. No tenderness. Right lower leg: No edema. Left lower leg: No edema. Lymphadenopathy: Cervical: No cervical adenopathy. Skin: Findings: No rash. Neurological: General: No focal deficit present. Mental Status: She is alert and oriented to person, place, and time. Cranial Nerves: No cranial nerve deficit. Psychiatric: Mood and Affect: Mood normal. Behavior: Behavior normal. ASSESSMENT/PLAN: Encounter for screening mammogram for malignant neoplasm of breast (Primary) - MAMMOGRAM SCREENING TRU BILATERAL; Future; Expected date: 09/07/2024 Well adult exam High grade squamous intraepithelial lesion (HGSIL), grade 3 LIZ, on biopsy of cervix Generalized anxiety disorder Hives - CBC WITH WBC DIFFERENTIAL AND ANEMIA REFLEX WORKUP; Future; Expected date: 09/07/2024 - TISSUE TRANSGLUTAMINASE IGA ANTIBODY; Future; Expected date: 09/07/2024 - 25-HYDROXY VITAMIN D; Future; Expected date: 09/07/2024 - VITAMIN B12; Future; Expected date: 09/07/2024 - TSH WITH FREE T4 IF INDICATED; Future; Expected date: 09/07/2024 - COMPREHENSIVE METABOLIC PANEL; Future; Expected date: 09/07/2024 - ALLERGY REFERRAL OP Encounter for screening mammogram for breast cancer Family history of thyroid disease - TSH WITH FREE T4 IF INDICATED; Future; Expected date: 09/07/2024 Rosacea Other orders - Montelukast Sodium 10 MG Oral Tablet (Singulair); Take 1 Tablet by mouth in the morning. Follow Up: Return for Labs Today. | For: Labs Today | Check-out note: Mammogram Allergy referral Trial singulair 10 mg daily and update me in 2 wks Start food diary Might consider thyroid US Discussed with patient: -HEALTH PROMOTION: Adequate sleep (8-10 hours/night), regular exercise, balanced diet, dental care,limiting sedentary activities (TV, computer, Internet) -MENTAL HEALTH: Discuss feelings with an someone that they can trust -INJURY PREVENTION: Driving Safety, Seat Belts, Sun Safety, No Weapons, Conflict Resolution, Personal Safety -SUBSTANCE ABUSE: Tobacco, Drugs, Alcohol Probiotic daily Latisha Benton MD documented in this encounter Nursing Notes * Lauren Jones LPN - 09/07/2024 8:36 AM EDT Chief Complaint Patient presents with NEW PATIENT Pt here today as a new pt. Pt here today due to getting hives since June and has gotten worse since she started a new medication in 07/26/2024 documented in this encounter Plan of Treatment Upcoming Encounters Date Type Department Care Team (Late st Contact Info) Description 09/22/2024 3:30 PM EST Imaging Radiology [facility], [address] [place] [id number] 12/15/2024 1:20 PM EST Office Visit Dermatology Amaris Jacinto [address] [place] [address] Camila Reddy MD [address] [place] [address] 01/06/2025 1:00 PM EST Office Visit Allergy/Immunology [facility] [place] [address] [facility] [place] [id number] Mark Cruz MD [address] [facility] [place] [address] Pending Results Name Type Priority Associated Diagnoses Date /Time CBC WITH WBC DIFFERENTIAL AND ANEMIA REFLEX WORKUP Lab Routine Hives 09/07/2024 9:37 AM EDT TISSUE TRANSGLUTAMINASE IGA ANTIBODY Lab Routine Hives 09/07/2024 9:37 AM EDT 25-HYDROXY VITAMIN D Lab Routine Hives 09/07/2024 9:37 AM EDT VITAMIN B12 Lab Routine Hives 09/07/2024 9:37 AM EDT TSH WITH FREE T4 IF INDICATED Lab Routine Hives Family history of thyroid disease 09/07/2024 9:37 AM EDT COMPREHENSIVE METABOLIC PANEL Lab Routine Hives 09/07/2024 9:37 AM EDT Scheduled Orders Name Type Priority Associated Diagnoses Order Schedule MAMMOGRAM SCREENING TRU BILATERAL Medical Imaging Routine Encounter for screening mammogram for malignant neoplasm of breast Expected: 09/07/2024, Expires: 10/08/2025 CBC WITH WBC DIFFERENTIAL AND ANEMIA REFLEX WORKUP Lab Routine Hives Expected: 09/07/2024 (Approximate), Expires: 09/07/2025 TISSUE TRANSGLUTAMINASE IGA ANTIBODY Lab Routine Hives Expected: 09/07/2024 (Approximate), Expires: 09/07/2025 25-HYDROXY VITAMIN D Lab Routine Hives Expected: 09/07/2024 (Approximate), Expires: 09/07/2025 VITAMIN B12 Lab Routine Hives Expected: 09/07/2024 (Approximate), Expires: 09/07/2025 TSH WITH FREE T4 IF INDICATED Lab Routine Hives Family history of thyroid disease Expected: 09/07/2024 (Approximate), Expires: 09/07/2025 COMPREHENSIVE METABOLIC PANEL Lab Routine Hives Expected: 09/07/2024 (Approximate), Expires: 09/07/2025 Scheduled Referrals Name Type Priority Associated Diagnoses Orde r Schedule ALLERGY REFERRAL OP Referral Within 10 da ys (routine) Hives Ordered: 09/07/2024 Health Maintenance Due Date Last Done Comments Mammogram 2024 COVID-19 Vaccine ( season) 2024 Influenza Vaccine (FLU shot) (#1) 2024 08/31/2015, 08/29/2015, 08/08/2009 Depression Screening 09/07/2025 09/07/2024 DTap/Tdap Vaccines (4 - Td or Tdap) 02/25/2026 02/26/2016, 03/17/2015, 08/21/1995 Lipid Panel 06/13/2026 06/13/2021 Hepatitis B Vaccine Completed 03/24/1996, 11/11/1995, 10/10/1995 Hepatitis C Screening Completed 10/05/2002 Pneumococcal Vaccine: Pediatrics (0 to 5 Years) and At-Risk Patients (6 to 64 Years) Aged Out 08/04/2013 No longer eligible based on patient's age to complete this topic Cervical Cancer Screening Discontinued HPV/Co-Test Discontinued 12/09/2022 Pap Smear Discontinued 12/09/2022, 03/18, 12/31/2013, Additional history exists HPV (Gardasil) Vaccine Aged Out No lo nger eligible based on patient's age to complete this topic MENINGOCOCCAL (MENACTRA/MENVEO) Aged Out No longer eligible based on patient's age to complete this topic documented as of this encounter Medical Devices Not on filedocumented as of this encounter Visit Diagnoses Diagnosis Encounter for screening mammogram for malignant neoplasm of breast- Primary Other screening mammogram Well adult exam Routine general medical examination at a health care facility High grade squamous intraepithelial lesion (HGSIL), grade 3 LIZ, on biopsy of cervix Generalized anxiety disorder Hives Urticaria, unspecified Encounter for screening mammogram for breast cancer Family history of thyroid disease Family history of other endocrine and metabolic diseases Rosacea documented in this encounter Advance Directives * Full Code (Latest Code Status on File) Date Activated Date Inactivated Comments 08/27/2023 1:54 PM 08/28/2023 7:51 PM This order reflects the patients wishes and were consensually agreed upon. Question Answer Comments Discussion of Advance Directives occurred with: Patient Care Teams Loom Changer Relationship Specialty Start Date End Date Tre Carmona MD [address] [place] [address] PCP - General Family Medicine 03/17/15 documented as of this encounter
--- OUTSIDE RECORDS SUMMARY | 2025-01-28 17:09 | External Medical Summary ---
Author Name Unknown Address Unknown Organization K01:[facility] Formerly named [facility] [address] [facility] [address] Laboratory Report Ordering Provider Test Date Status EULALIA TORO 09/07/2024 09:37:51 Final Observation Date Value Abnormality Reference (Units ) Status WBC, Total 09/07/2024 09:37:51 2.41 Below low normal 4. 00-10.80 (K/uL) Final RBC 09/07/2024 09:37:51 4.17 3.85-5.15 (M/uL) Final Hemoglobin 09/07/2024 09:37:51 14.3 12.0-15.3 (g/dL) Final Anemia reflex testing trigge rs on a HGB < 12.0 for Females and HGB < 13.0 for Males in accordance with the WHO Anemia Guidelines
Anemia reflex testing triggers on a HGB < 12.0 for Females and HGB < 13.0 for Males in accordance with the WHO Anemia Guidelines HCT 09/07/2024 09:37:51 42.2 36.0-45.2 (%) Final MCV 09/07/2024 09:37:51 101.2 81.5-97.5 (fL) Final MCH 09/07/2024 09:37:51 34.3 27.0-34.0 (pg) Final MCHC 09/07/2024 09:37:51 33.9 32.0-36.0 (g/dL) Final RDW 09/07/2024 09:37:51 11.8 11.5-15.5 (%) Final Platelets 09/07/2024 09:37:51 218 140-400 (K /uL) Final MPV 09/07/2024 09:37:51 9.3 6.6-11.1 ( fL) Final Nucleated erythrocytes/100 leukocytes [Ratio] in Blood by Automated count 09/07/2024 09:37:51 0 <=0 (/100 WBCs) [facility] Performing Location [facility] - [address] [facility] [address]
--- OUTSIDE RECORDS SUMMARY | 2025-01-28 17:09 | External Medical Summary | Summary of Care ---
Author Name Unknown Organization [facility] Address [address] [place] [address] Phone [phone] Care Team Providers Care Media Strategist Name Role Phone Tre Carmona MD Primary Care Provider + Encounter Details Date Type Department Care Team (Late st Contact Info) Description 09/09/2024 Telephone [facility] [address] [place] [address] Latisha Benton MD [address] [place] [address] Allergies No known active allergiesdocumented as of this encounter (statuses as of 09/09/2024) Medications Medication Sig Dispensed Refills Start Date End Date Status Doxycycline Monohydrate 100 MG Oral Capsule Take 1 Capsule by mouth in the morning and 1 Capsule before bedtime. Take with meals (avoid taking with dairy products or iron supplements) and a large glass of water. Do not lie flat for 30 min after taking the medication.. 180 Capsule 07/26/2024 10/24/2024 Active Azelaic Acid 15 % External Gel (Finacea) After skin is thoroughly washed and patted dry, gently but thoroughly massage a thin film onto the affected area twice daily 30 g 7 07/26/2024 Active Montelukast Sodium 10 MG Oral Tablet (Singulair) Take 1 Tablet by mouth in the morning. 90 Tablet 3 09/07/2024 Active documented as of this encounter (statuses as of 09/09/2024) Active Problems Problem Noted Date Diagnosed Date [...] as of this encounter (statuses as of 09/09/2024) Resolved Problems Problem Noted Date Diagnosed Date Resolved Date Cellulitis 09/08/2023 09/07/2024 Encounter for supervision of other normal 08/01/2015 03/22/2016 Overview: Patient received flu vaccine. 08/29/2015 Sandy Lynn RN Had difficult time first baby, [place]. Undecided about this /baby. Had epidural last labor. Very satisfied with labor experience at [facility] last . Baby: "Jenny Santos" Patient received [...] as of this encounter (statuses as of 09/09/2024) Immunizations Name Administration Dates Next Due Pneumococcal [...] Passive Smoke Exposure: Current Smokeless Tobacco: Never Comments:1-2 cigs a day, valente t with Alcohol Use Standard Drinks/Week Comments Yes 0 (1 standard drink = 0.6 oz pur e alcohol) occassionally PHQ-2 Answer Date Recorded PHQ Adult Total Score 0 09/07/2024 Hunger Vital Sign Answer Date Recorded Within the past 12 months, y ou worried that your food would run out before you got the money to buy more. Never true 09/07/20 Within the past 12 months, t he [...] No 09/07/2024 Does the household have a [facility] source of income? (Household - for ages [...] ages 0-17 years) Not on file 09/07/2024 Sex and Gender Information Value Date Recorded Sex Assigned at Female 05/07/2023 11:06 AM EDT Gender Identity Female 05/07/2023 11:06 AM EDT Sexual Orientation Straight 05/07/2023 11 :06 AM EDT Job Start Date Occupation Industry Not on file Not on file Not on file documented as of this encounter Functional Status Functional Status Response [...] (15 years old or older) No 08/27/20 23 Cognitive Status Response Date of Assessm ent Because of a physical, menta l, or emotional condition, do you have serious difficulty concentrating, remembering, or making decisions? (5 years old or older) No 08/27/2023 documented as of this encounter Miscellaneous Notes * Telephone Encounter - Latisha Benton MD - 09/09/2024 3:41 PM EDT Talked to pt Will add Immunoglobulin and hepatitis panel Advised to stop drinking alcohol for now Vt D 2000 unit daily documented in this encounter Plan of Treatment Upcoming Encounters Date Type Department Care Team (Late st Contact Info) Description 09/22/2024 3:30 PM EST Imaging Radiology [address] [place] [address] 12/15/2024 1:20 PM EST Office Visit Dermatology [facility] [address] [place] [address] Camila Reddy MD [address] [place] [address] 01/06/2025 1:00 PM EST Office Visit Allergy/Immunology [facility] [address] [facility] [place] [address] Mark Cruz MD 200 [facility] [place] [address] Pending Results Name Type Priority Associated Diagnoses Date /Time IMMUNOGLOBULIN QUANTITATIVE Lab Routine Neutropenia, unspecified type (HCC) Hives 09/07/2024 9:37 AM EDT Scheduled Orders Name Type Priority Associated Diagnoses Orde r Schedule ACUTE HEPATITIS PANEL Lab Routine Elevated LFTs Hives Expected: 09/09/2024 (Approximate), Expires: 09/09/2025 IMMUNOGLOBULIN QUANTITATIVE Lab Routine Neutropenia, unspecified type (HCC) Hives Expected: 09/09/2024 (Approximate), Expires: 09/09/2025 Health Maintenance Due Date Last Done Comments [...] as of this encounter Visit Diagnoses Diagnosis Neutropenia, unspecified type (HCC)- Primary Elevated LFTs Other abnormal blood chemistry Hives Urticaria, unspecified documented in this encounter Advance Directives * Full Code (Latest Code Status on File) Date Activated Date Inactivated Comments 08/27/2023 1:54 PM 08/28/2023 7:51 PM This order reflects the patients wishes and were consensually agreed upon. Question Answer Comments Discussion of Advance Directives occurred with: Patient Care Teams Media Strategist Relationship Specialty Start Date End Date Tre Carmona MD [address] [place] [address] PCP - General Family Medicine 03/17/15 documented as of this encounter
--- OUTSIDE RECORDS SUMMARY | 2025-01-28 17:09 | External Medical Summary ---
Author Name Unknown Address Unknown Organization K01:LABORATORY [facility] [place] - [address] [place] [address] Laboratory Report Ordering Provider Test Date Status EULALIA TORO 09/07/2024 09:37:51 Final Observation Date Value Abnormality Reference (Units ) Status Vitamin B12 09/07/2024 09:37:51 [id number] (pg/mL) Final Performing Location LABORATORY [facility] - [address] [place] [address]
--- OUTSIDE RECORDS SUMMARY | 2025-01-28 17:09 | External Medical Summary ---
Author Name Unknown Address Unknown Organization K01:LABORATORY [place] [address] [address] [facility] [address] [facility] [address] Laboratory Report Ordering Provider Test Date Status EULALIA TORO 09/07/2024 09:37:51 Final Observation Date Value Abnormality Reference (Units ) Status Tissue transglutaminase IgA Ab [Presence] in Serum by Immunoassay 09/07/2024 09:37:51 Negative Negative Final Tissue transglutaminase IgA Ab [Units/volume] in Serum by Immunoassay 09/07/2024 09:37:51 0.4 <7 (U/mL) Final Performing Location LABORATORY [facility] - [facility] [place] [address] [id number]
--- OUTSIDE RECORDS SUMMARY | 2025-01-28 17:09 | External Medical Summary ---
Author Name Unknown Address Unknown Organization K01:[facility] - [facility] [address] [facility] [address] [facility] [address] Laboratory Report Ordering Provider Test Date Status CHEPEIPPEREULALIA 09/07/2024 09:37:51 Final Observation Date Value Abnormality Reference (Units ) Status TSH 09/07/2024 09:37:51 0.77 0.27-4.20 (uIU/mL) Final Performing Location [facility] - [address] [facility] [address]
--- OUTSIDE RECORDS SUMMARY | 2025-01-28 17:09 | External Medical Summary | Summary of Care ---
Author Name Unknown Organization [facility] Address [address] [place] [address] Phone [phone] Care Team Providers Care English Composition Instructor Name Role Phone Tre Carmona MD Primary Care Provider + Encounter Details Date Type Department Care Team (Late st Contact Info) Description 09/14/2024 Orders Only PATIENT PORTAL DO NOT DELETE THIS DEPT USED BY [place] [id number] Allergies No known active allergiesdocumented as of this encounter (statuses as of 09/14/2024) Medications Medication Sig Dispensed Refills Start Date [...] as of this encounter (statuses as of 09/14/2024) Active Problems Problem Noted Date Diagnosed Date [...] as of this encounter (statuses as of 09/14/2024) Resolved Problems Problem Noted Date Diagnosed Date Resolved Date Cellulitis 09/08/2023 09/07/2024 Encounter for supervision of other normal 08/01/2015 03/22/2016 Overview: Patient received flu vaccine. 08/29/2015 Sandy Lynn RN Had difficult time first baby, [place]. Undecided about this /baby. Had epidural last labor. Very satisfied with labor experience at [facility] last . Baby: "Jenny Santos" Patient received Tdap 02/26/2016 Marcy Fisher, RN ICD-10 update of inactive term Encounter [...] as of this encounter (statuses as of 09/14/2024) Immunizations Name Administration Dates Next Due Pneumococcal [...] No 09/07/2024 Does the household have a [facility] source of income? (Household - for ages [...] No 08/27/2023 documented as of this encounter Plan of Treatment Upcoming Encounters Date Type Department Care Team (Late st Contact Info) Description 09/22/2024 3:30 PM EST Imaging Radiology [facility] [address] [facility] [address] [facility] [place] [address] 12/15/2024 1:20 PM EST Office Visit Dermatology [facility] [address] [place] [address] Camila Reddy MD [address] [place] [address] 01/06/2025 1:00 PM EST Office Visit Allergy/Immunology [facility] 200 [place] [address] Mark Cruz MD [address] [place] [address] Health Maintenance Due Date Last Done Comments [...] Not on filedocumented as of this encounter Advance Directives * Full Code (Latest Code Status on File) Date Activated Date Inactivated Comments 08/27/2023 1:54 PM 08/28/2023 7:51 PM This order reflects the patients wishes and were consensually agreed upon. Question Answer Comments Discussion of Advance Directives occurred with: Patient Care Teams English Composition Instructor Relationship Specialty Start Date End Date Tre Carmona MD [address] [place] [address] PCP - General Family Medicine 03/17/15 documented as of this encounter
--- OUTSIDE RECORDS SUMMARY | 2025-01-28 17:09 | External Medical Summary | Summary of Care ---
Author Name Unknown Organization [facility] Address [address] [place] [address] Phone [phone] Care Team Providers Care Eye Care Professional Name Role Phone Tre Carmona MD Primary Care Provider + Reason for Visit * Reason Comments Outpatient Testing Encounter Details Date Type Department Care Team (Late st Contact Info) Description 09/07/2024 9:30 AM EDT Laboratory Laboratory, [place] [address] [place] [address] [place] [address] [place] [address] Hives; Family history of thyroid disease Allergies No known active allergiesdocumented as of [...] Lynn RN Had difficult time first baby, [place]. Undecided about this /baby. Had epidural last labor. Very satisfied with labor experience at [facility] last . Baby: "Jenny Santos" Patient received [...] 05/07/2023 Does the household have a re gular [...] Description 09/22/2024 3:30 PM EST Imaging Radiology [address] [facility] [place] [address] 12/15/2024 1:20 PM EST Office Visit Dermatology [place] [place] [address] [place] [address] Camila Reddy MD [address] [place] [address] 01/06/2025 1:00 PM EST Office Visit Allergy/Immunology [facility] 200 [facility] [place] [address] Mark Cruz MD 200 [place] [address] Pending Results Name Type Priority Associated Diagnoses [...] Lab Routine Hives 09/07/2024 9:37 AM EDT ANEMIA CBC Lab Routine Hives 09/07/2024 9:37 AM EDT DIFFERENTIAL, AUTOMATED Lab Routine Hives 09/07/2024 9:37 AM EDT ANEMIA REFLEX CHEMISTRY HOLD Lab Routine Hives 09/07/2024 9:37 AM EDT Health Maintenance Due Date Last Done Comments Mammogram 2024 COVID-19 Vaccine ( season) 2024 Influenza Vaccine (FLU shot) (#1) 2024 08/31/2015, 08/29/2015, 08/08/2009 Depression Screening 09/07/2025 09/07/2024, 06/13/20 21 DTap/Tdap Vaccines (4 - Td or Tdap) [...] as of this encounter Visit Diagnoses Diagnosis Hives Urticaria, unspecified Family history of thyroid disease Family history of other endocrine and metabolic diseases documented in this encounter Advance Directives * Full Code (Latest Code Status on File) Date Activated Date Inactivated Comments 08/27/2023 1:54 PM 08/28/2023 7:51 PM This order reflects the patients wishes and were consensually agreed upon. Question Answer Comments Discussion of Advance Directives occurred with: Patient Care Teams Eye Care Professional Relationship Specialty Start Date End Date Tre Carmona MD [address] [place] [address] PCP - General Family Medicine 03/17/15 documented as of this encounter
--- OUTSIDE RECORDS SUMMARY | 2025-01-28 17:09 | External Medical Summary ---
Author Name Unknown Address Unknown Organization K01:LABORATORY [facility] - [address] [facility] [address] Laboratory Report Ordering Provider Test Date Status EULALIA TORO 09/07/2024 09:37:51 Final Observation Date Value Abnormality Reference (Units ) Status SYNC LEUKOCYTES IN BLOOD BY AUTOMATED COUNT 09/07/2024 09:37:51 2.41 Below low normal 4.00-10.80 (K/uL) Final Segs 09/07/2024 09:37:51 34.5 Below low normal 40.0-75.0 (%) Final Lymphs % 09/07/2024 09:37:51 48.5 Above high normal 18.0-42.0 (%) Final Monos 09/07/2024 09:37:51 12.9 Above high normal 1.0-11.0 (%) Final Eosinophils 09/07/2024 09:37:51 2.5 0.0-6.0 (%) Final Basos 09/07/2024 09:37:51 1.2 0.0-2.0 (%) Final Immature Granulocyte, Percent 09/07/2024 09:37:51 0.4 0.0-2.0 (%) Final Absolute Segs 09/07/2024 09:37:51 0.83 Below low normal 1.80-7.70 (K/uL) Final Lymphs, absolute 09/07/2024 09:37:51 1.17 1.00-4.80 (K/ul) Final Monos, Abs 09/07/2024 09:37:51 0.31 0.00-1.10 (K/uL) Final Eos, Abs 09/07/2024 09:37:51 0.06 0.00-0.70 (K/uL) Final Basos, Abs 09/07/2024 09:37:51 0.03 0.00-0.20 (K/uL) Final Immature Granulocytes, Number 09/07/2024 09:37:51 0.01 0.00-0.20 (K/uL) Final Performing Location LABORATORY [facility] - [facility] [place] [address]
[2025-01-28] MEDS: PIPERACILLIN/TAZOBACTAM 4.5 GM/100 ML BAG IV SCH (17:24)
[2025-01-28] MEDS: hydrALAZINE HCL 20 MG/ML VIAL IV PRN (22:07)
--- NOTE | 2025-01-28 22:20 | Consultation ---
Date of Consultation January 28, 2025 Assessment & Plan (1) Appendicitis: 39-year-old female with past medical history significant for history of acute gastritis, history of diarrhea, history of kidney stone, history of severe dysplasia of cervix, history of anemia, history of general anxiety disorder, his tory of obsessive-compulsive disorder, rosacea was admitted for appendicitis. Blood pressures running high in the hospital. Patient says since yesterday evening she noticed right-sided abdominal pain associated with nausea. Currently nausea improved. Denies any fevers. Normal bowel movements. Normal bladder movements. Denies any headache. Denies dizziness. Denies blurred visions or double vision. No earache. No runny nose, no sore throat. No cough. No history of high blood pressure. Appendicitis On Zosyn N.p.o. Management as per surgery Hypertension Mostly situational IV hydralazine as needed for now Will monitor Follicle cyst in the right adnexa Follow-up DVT prophylaxis and disposition Per surgery History of Present Illness Reason for Consultation: Appendicitis Attending Physician: Anish Dougherty MD, [facility] History of Present Illness 39-year-old female with past medical history significant for history of acute gastritis, history of diarrhea, history of kidney stone, history of severe dysplasia of cervix, history of anemia, history of general anxiety disorder, history of obsessive-compulsive disorder, rosacea was admitted for appendicitis. Blood pressures running high in the hospital. Patient says since yesterday evening she noticed right-sided abdominal pain associated with nausea. Currently nausea improved. Denies any fevers. Normal bowel movements. Normal bladder movements. Denies any headache. Denies dizziness. Denies blurred visions or double vision. No earache. No runny nose, no sore throat. No cough. No history of high blood pressure. Past medical history. As mentioned above Past surgical history. induced by D&E. Cystoscope. Dental surgery. Laparoscopic hysterectomy with removal of tubes. Social history. Quit smoking 2014. Smoked 0.3 packs a day for 6 years. Some days vapes. Alcohol occasional. No drug use. Family history. Mother had hepatitis C. Sister has rheumatoid arthritis. Allergies Allergy/AdvReac Type Severity Reaction Status Date / Time No Known Allergies Allergy Verified 03/09/16 01:31 Home Medications Medication Instructions Recorded Confirmed Type No Known Home Medications 01/28/25 01/28/25 History Patient History Medical History No significant past medical history Surgical History History of laparoscopic-assisted vaginal hysterectomy Social History Smoking Status: Former smoker Second Hand Exposure: No; Do You Dip or Chew Tobacco: No; Tobacco Cessation Education Requested by Patient: No Hx Alcohol Use: Yes Alcohol type: beer, wine and hard liquor Hx Substance Use: No Preferred Language: Ghanaian Communication Ability: Effective 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 Lungs- clear to auscultation no wheezing or crackles Heart- regular rhythm; no murmur, no gallop. Abdomen- normal bowel sounds, soft, diffuse tenderness with guarding, no distension Extremities- no pretibial edema, no erythema seen. Neuro- alert, oriented no facial palsy; no dysarthria; moves extremities Results & Data Vital Signs (Past 12 Hours) Vital Signs Temp Pulse Pulse Pulse Resp BP BP 01/28/25 22:00 65 160/91 H 01/28/25 20:24 36.8 C 65 16 168/101 H 01/28/25 19:52 164/108 H 01/28/25 19:50 36.5 C 64 16 163/105 H 01/28/25 13:40 36.9 C 63 20 157/97 H 01/28/25 12:12 01/28/25 12:10 78 16 135/99 01/28/25 11:00 163/104 H 01/28/25 10:54 74 19 01/28/25 10:51 62 17 01/28/25 10:48 64 16 01/28/25 10:30 140/94 01/28/25 10:18 66 15 Pulse Ox Pulse Ox O2 Del Method O2 Del Method 01/28/25 22:00 01/28/25 20:24 97 Room Air 01/28/25 19:52 01/28/25 19:50 97 Room Air 01/28/25 13:40 97 Room Air 01/28/25 12:12 98 Room Air 01/28/25 12:10 98 Room Air 01/28/25 11:00 01/28/25 10:54 100 01/28/25 10:51 100 01/28/25 10:48 99 01/28/25 10:30 01/28/25 10:18 97 Diagnostic Findings Laboratory Results WBC 8.31 K/ul (4.8-10.8) 01/28/25 09:21 RBC 4.09 M/uL (4.20-5.40) L 01/28/25 09:21 Hgb 14.0 g/dl (12.0-16.0) 01/28/25 09:21 Hct 38.7 % (37.0-47.0) 01/28/25 09:21 MCV 94.6 fL (80.0-100.0) 01/28/25 09:21 MCH 34.2 pg (25.0-34.0) H 01/28/25 09:21 MCHC 36.2 g/dL (32.0-36.0) H 01/28/25 09:21 RDW Std Deviation 38.4 fL (36.4-46.3) 01/28/25 09:21 RDW Coeff of Riki 11.0 % (11.5-14.5) L 01/28/25 09:21 Plt Count 222 K/uL (130-400) 01/28/25 09:21 MPV 9.0 fL (9.4-12.4) L 01/28/25 09:21 Immature Gran % (Auto) 0.4 % 01/28/25 09:21 Neut % (Auto) 78.3 % 01/28/25 09:21 Lymph % (Auto) 14.8 % 01/28/25 09:21 Angelina % (Auto) 6.0 % 01/28/25 09:21 Eos % (Auto) 0.1 % 01/28/25 09:21 Baso % (Auto) 0.4 % 01/28/25 09:21 Neut # (Auto) 6.51 K/uL (1.40-6.50) H 01/28/25 09:21 Lymph # (Auto) 1.23 K/uL (1.20-3.40) 01/28/25 09:21 Angelina # (Auto) 0.50 K/uL (0.11-0.59) 01/28/25 09:21 Eos # (Auto) 0.01 K/uL (0.00-0.50) 01/28/25 09:21 Baso # (Auto) 0.03 K/uL (0.00-0.20) 01/28/25 09:21 Immature Gran # (Auto) 0.03 K/uL (0.01-0.20) 01/28/25 09:21 Sodium 133 mmol/L (136-145) L 01/28/25 09:21 Potassium 3.6 mmol/L (3.5-5.1) 01/28/25 09:21 Chloride 100 mmol/L (98-107) 01/28/25 09:21 Carbon Dioxide 28 mmol/L (21-32) 01/28/25 09:21 Anion Gap 5 (3-11) 01/28/25 09:21 BUN 8 mg/dl (6-23) 01/28/25 09:21 Creatinine 0.89 mg/dl (0.6-1.2) 01/28/25 09:21 Est Cr Clr Drug Dosing 77.5 ml/min 01/28/25 09:21 eGFR 84.00 01/28/25 09:21 BUN/Creatinine Ratio 9.0 (10-20) L 01/28/25 09:21 Glucose 94 mg/dl (70-99(Fasting)) 01/28/25 09:21 Calcium 9.6 mg/dl (8.6-10.3) 01/28/25 09:21 Total Bilirubin 1.2 mg/dl (0.2-1.0) H 01/28/25 09:21 AST 15 U/L (13-39) 01/28/25 09:21 ALT 9 U/L (7-52) 01/28/25 09:21 Alkaline Phosphatase 43 U/L (34-104) 01/28/25 09:21 Total Protein 7.6 gm/dl (6.0-8.3) 03/14/25 09:21 Albumin 4.4 gm/dl (3.4-5.0) 01/28/25 09:21 Globulin 3.2 gm/dl (2.5-4.0) 01/28/25 09:21 Albumin/Globulin Ratio 1.4 (0.9-2) 01/28/25 09:21 Lipase 15 U/L (11-82) 01/28/25 09:21 Urine Color Yellow 01/28/25 09:40 Urine Appearance Clear (Clear) 01/28/25 09:40 Urine pH 6.5 (4.5-7.5) 01/28/25 09:40 Ur Specific [place] 1.011 (1.000-1.030) 01/28/25 09:40 Urine Protein Negative (Negative) 01/28/25 09:40 Urine Glucose (UA) Negative (Negative) 01/28/25 09:40 Urine Ketones Negative (Negative) 01/28/25 09:40 Urine Blood Negative (Negative) 01/28/25 09:40 Urine Nitrite Negative (Negative) 01/28/25 09:40 Urine Bilirubin Negative (Negative) 01/28/25 09:40 Urine Urobilinogen Negative (Negative) 01/28/25 09:40 Ur Leukocyte Esterase Negative (Negative) 01/28/25 09:40 Impressions Abdomen/Pelvis CT 01/28/25 09:[address] WITH IV CONTRAST CT DOSE: 457.38 mGy.cm HISTORY: RLQ PAIN, HYSTER WITH PRESERVED OVARIES TECHNIQUE: Multiaxial CT images of the abdomen and pelvis were performed following the IV administration of 94 cc of Optiray, sagittal and coronal reconstructions were done. A dose lowering technique was utilized adhering to the principles of ALARA. COMPARISON STUDY: None FINDINGS: The appendix is hyperemic and there is a small amount of periappendiceal inflammatory stranding in the right lower quadrant. In addition, the patient has 2 ring-enhancing follicular cysts in the right adnexa. There is a small amount of fluid in the cul-de-sac. The uterus is absent. The left ovary is not enlarged. The lung bases and bone windows are negative for acute findings. There is mild hepatic steatosis with no focal liver lesion identified. There is a small hypoattenuating left adrenal nodule. The kidneys and spleen are unremarkable. The pancreas is unremarkable. The gallbladder and bile ducts are negative. There is no bowel obstruction or free air. There is no ascites. There is no aortic aneurysm or periaortic adenopathy. The unopacified urinary bladder1 is unremarkable. IMPRESSION: Uncomplicated appendicitis with appendiceal hyperemia and mild periappendiceal inflammatory stranding. No evidence of perforation or abscess. 2 enhancing follicular cyst in the right adnexa are likely to be incidental. Additional confidence in this opinion could be obtained with pelvic ultrasound if clinically warranted. ACT 112: Negative or not required by law. The above report was generated using voice recognition software. It may contain grammatical, syntax or spelling errors. Electronically signed by: Araceli Ruiz M.D. 01/28/2025 10:56 AM
--- NOTE | 2025-01-29 05:40 | Surgery Progress Note ---
Date of Service January 29, 2025 Assessment & Plan (1) Appendicitis: Plan: Although she feels better still has no temperature but still has localized pain on exam and right lower quadrant right suprapubic area I recommend to proceed with laparoscopic appendectomy Risk and complication were explained to the patient including bleeding infection converting to an open procedure and she would like to proceed accordingly Plan Will proceed with laparoscopic appendectomy possible open risk and complication were explained to the patient including bleeding infection converting to an open procedure and anticipated recovery time and discharge and she would like to proceed accordingly Will sign the permit in the preop area Admission and Anticipated Discharge Date Admission Date: January 28, 2025 Subjective Less abdominal discomfort that she had yesterday No problems sleeping last night Consult of the medical service last evening for persistent hypertension going back to about 3 years she was started on hydralazine and her blood pressure is improved this morning to 134/87 Review of Systems Review of Systems: Patient had a history dating back at least 3 years with hypertension never r zachary worked up Physical Exam Physical Exam: was asleep when I first walked in this morning was asleep when I first walked in this morning I responded quickly with a light turning on room Is alert coherent resting comfortably The abdomen is a bit softer still has some guarding and some tenderness right lower quadrant right suprapubic area Rest of the abdomen is negative Last blood pressure 2300 was 134/87 Results & Data Vital Signs (Past 12 Hours) Vital Signs Temp Pulse Resp BP Pulse Ox Pulse Ox O2 Del Method 01/28/25 23:38 67 134/87 01/28/25 22:00 65 160/91 H 01/28/25 20:24 36.8 C 65 16 168/101 H 97 Room Air 01/28/25 19:52 164/108 H 01/28/25 19:50 97 01/28/25 19:50 36.5 C 64 16 163/105 H 97 Room Air O2 Del Method 01/28/25 23:38 01/28/25 22:00 01/28/25 20:24 01/28/25 19:52 01/28/25 19:50 Room Air 01/28/25 19:50
[2025-01-29 05:55] LABS: Basophils # (auto) 0.02 K/uL (0.00-0.20); Basophils % (auto) 0.4 %; Eosinophils # (auto) 0.07 K/uL (0.00-0.50); Eosinophils % (auto) 1.3 %; Hematocrit (blood only) 38.7 % (37.0-47.0); Hemoglobin 13.6 g/dl (12.0-16.0); Immature Granulocytes # (auto) 0.02 K/uL (0.01-0.20); Immature Granulocytes % (auto) 0.4 %; Lymphocytes # (auto) 1.05 K/uL (1.20-3.40); Lymphocytes % (auto) 19.8 %; Mean Corpuscular Hemoglobin 33.3 pg (25.0-34.0); Mean Corpuscular Hgb Conc 35.1 g/dL (32.0-36.0); Mean Corpuscular Volume 94.9 fL (80.0-100.0); Mean Platelet Volume 8.8 fL (9.4-12.4); Monocytes # (auto) 0.36 K/uL (0.11-0.59); Monocytes % (auto) 6.8 %; Neutrophils # (auto) 3.77 K/uL (1.40-6.50); Neutrophils % (auto) 71.3 %; Platelet Count 215 K/uL (130-400); Red Blood Count 4.08 M/uL (4.20-5.40); White Blood Count 5.29 K/ul (4.8-10.8)
[2025-01-29 06:09] LABS: BUN Creatinine Ratio 6.9 (10-20); Calcium 9.6 mg/dl (8.6-10.3); Creatinine Clr Calc Pharmacy 67.6 ml/min; Potassium 3.9 mmol/L (3.5-5.1)
[2025-01-29] MEDS ORDERED: ONDANSETRON INJ 2 MG/ML 2 ML VIAL ONE (06:56)
[2025-01-29] MEDS ORDERED: MIDAZOLAM HCL 1 MG/ML 2ML VIAL ONE (06:56)
[2025-01-29] MEDS ORDERED: LIDOCAINE 2% 2 ML VIAL/AMP(20MG/ML) INFIL ONE (06:56)
[2025-01-29] MEDS ORDERED: PROPOFOL IV EMULSION 10 MG/ML 20 ML VIAL IV ONE (06:56)
[2025-01-29] MEDS ORDERED: DEXAMETHASONE SOD INJ 4 MG/ML VIAL ONE (06:56)
[2025-01-29] MEDS ORDERED: LARYING-O-JET KIT (LTA) ONE (06:56)
[2025-01-29] MEDS ORDERED: ROCURONIUM BROMIDE 10 MG/ML 5 ML VIAL IV ONE (06:56)
[2025-01-29] MEDS ORDERED: fentaNYL citrate PF 100 MCG/2 ML VIAL ONE (06:56)
[2025-01-29] MEDS ORDERED: SUGAMMADEX SODIUM 200 MG/2 ML VIAL IV ONE (06:57)
[2025-01-29] MEDS ORDERED: ePHEDrine sulfate 50 MG/ML AMP IV PRN (07:30)
[2025-01-29] MEDS ORDERED: HYDROmorphone INJ 1 MG/ML SYRINGE IV PRN (07:30)
[2025-01-29] MEDS ORDERED: ONDANSETRON INJ 2 MG/ML 2 ML VIAL IV PRN (07:30)
[2025-01-29] MEDS ORDERED: ATROPINE SULFATE 0.1 MG/ML 10ML SYR IV PRN (07:30)
[2025-01-29] MEDS ORDERED: NALOXONE HCL 0.4 MG/1 ML VIAL/CARP IV PRN (07:30)
[2025-01-29] MEDS ORDERED: FLUMAZENIL 0.1 MG/1 ML 10 ML VIAL IV PRN (07:30)
[2025-01-29] MEDS ORDERED: fentaNYL citrate PF 100 MCG/2 ML VIAL IV PRN (07:30)
[2025-01-29] MEDS ORDERED: PROMETHAZINE HCL 6.25 MG in SODIUM CHLORIDE 0.9% 50 ML IV PRN (07:30)
--- NOTE | 2025-01-29 07:30 | Anesthesiology Consultation ---
Date of Service January 29, 2025 Assessment & Plan Chart Review Chart Review: Acceptable Risk for Surgery and Patient NOT seen in Pre Admission Testing Consults Requested none ASA [id number] Proposed Anesthesia Anesthesia Type: General Risk / Benefits Reviewed With: PT / POA / Parent / Guardian, Accepts Plan and Informed Consent Obtained History Surgery Operation Date: 01/29/25 07:30 Proposed Procedures p Laparoscopic Appendectomy - Anish Dougherty MD, FACS Height/Weight Height: 5 ft 7 in Weight: 58.4 kg Allergies Allergy/AdvReac Type Severity Reaction Status Date / Time No Known Allergies Allergy Verified 03/09/16 01:31 Medications Home Medications Medication Instructions Recorded Confirmed Last Taken No Known Home Medications 01/28/25 01/28/25 Unknown Active Medications Generic Name Dose Route Start Last Admin Trade Name Freq PRN Reason Stop Dose Admin Hydralazine HCl 5 mg 01/28/25 21:37 01/28/25 22:07 Hydralazine Hcl 20 Mg/Ml Vial IV 02/27/25 21:36 5 mg Q6H PRN Administration Hypertension Piperacillin Sod/Tazobactam Sod 4.5 gm in 100 mls @ 25 mls/hr 01/28/25 18:00 01/29/25 06:05 Zosyn IV 02/01/25 17:59 Infused Q8H TATY Infusion Protocol Morphine Sulfate 2 mg 01/28/25 17:20 01/28/25 19:50 Morphine Sulfate 2 Mg/Ml Carp IV 02/11/25 11:56 2 mg Q2H PRN Administration Pain (6,7,8,9,10) NPO Date Last Intake of Fluids: 01/28/25 Time Last Intake of Fluids: 19:00 Date Last Intake of Solids: 01/27/25 Time Last Intake of Solids: 12:00 Past Medical History Medical History No significant past medical history Exercise / Class Metabolic Activity II 4-5 Yardwork/Stairs/Walk up hill Past Surgical History Surgical History History of laparoscopic-assisted vaginal hysterectomy Past Anesthesia History No Hx of Anesthesia Complications and No Family Hx of Anesthesia Complications History of PONV No Hx of PONV and No Hx of Motion Sickness Social History Smoking Status: Former smoker Do You Dip or Chew Tobacco: No Hx Alcohol Use: Yes Alcohol type: beer, wine and hard liquor alcohol intake frequency: a few times a month Hx Substance Use: No substance use type: does not use Physical Exam Vital Signs Last Vital Signs Temp 36.8 C 01/28/25 20:24 Pulse 67 01/28/25 23:38 Resp 16 01/28/25 20:24 BP 134/87 01/28/25 23:38 Pulse Ox 97 01/28/25 20:24 O2 Del Method Room Air 01/28/25 20:24 Constitutional no acute distress and not cachectic ENMT Mouth: no dentition abnormality Thyromental Distance: < 3.5 Finger Breadths Mallampati Class: II Neck normal visual inspection and trachea midline; neck extension not limited Respiratory normal respiratory effort Auscultation: lungs clear to auscultation bilaterally Cardiovascular Rate/Rhythm: regular rate and regular rhythm Heart Sounds: no murmur Vessels: no carotid bruit Musculoskeletal Spine: normal cervical ROM and no pain with cervical ROM Extremities: extremities normal to inspection; full ROM of extremities Neurologic moves all extremities Motor/Sensory: no sensory deficit Psychiatric Orientation: alert and oriented x 3 Testing Laboratory Results 01/29/25 05:39 01/29/25 05:39 Urine Color Yellow 01/28/25 09:40 Urine Appearance Clear (Clear) 01/28/25 09:40 Urine pH 6.5 (4.5-7.5) 01/28/25 09:40 Ur Specific [place] 1.011 (1.000-1.030) 01/28/25 09:40 Urine Protein Negative (Negative) 01/28/25 09:40 Urine Glucose (UA) Negative (Negative) 01/28/25 09:40 Urine Ketones Negative (Negative) 01/28/25 09:40 Urine Nitrite Negative (Negative) 01/28/25 09:40 Ur Leukocyte Esterase Negative (Negative) 01/28/25 09:40
[2025-01-29] MEDS: EPINEPHrine INJ 1 MG/ML AMP ONE (08:04)
[2025-01-29] MEDS ORDERED: KETOROLAC 30 MG/ML VIAL ONE (08:08)
[2025-01-29] MEDS: LIDOCAINE 1% LOCAL 20 ML VIAL ONE (08:11)
--- NOTE | 2025-01-29 08:11 | Post Operative Brief Note ---
Immediate Post Op Note Date of Surgery January 29, 2025 Pre & Post Diagnosis Operation Date: 01/29/25 07:30 Pre-Op Diagnosis: Appendicitis Post-Op Diagnosis: Appendicitis I identified the patient and participated in the time-out.: Yes Procedure Operation Date: 01/29/25 07:30 Actual Procedures p Laparoscopic Appendectomy(Not Applicable) - Anish Dougherty MD, FACS Surgeon Anish Dougherty MD, FACS Air Traffic Control Manager David Estimated Blood Loss 5 Findings Consistent with Post-Op Diagnosis
--- NOTE | 2025-01-29 08:28 | Operative Report ---
PG Post Operative Report Pre & Post Diagnosis Operation Date: 01/29/25 07:30 Pre-Op Diagnosis: Appendicitis Post-Op Diagnosis: Appendicitis I identified the patient and participated in the time-out.: Yes Procedure Operation Date: 01/29/25 07:30 Actual Procedures p Laparoscopic Appendectomy(Not Applicable) - Anish Dougherty MD, FACS The patient was brought into the operating theater supine position general trach anesthesia the abdomen was prepped byline solution properly draped patient was systemic antibiotics patient identified timeout was had made a small transverse incision above the umbilical crater below scars from previous jewelry position incision was approximately 8 cm and a half long deep into subcutaneous tissue we then incised the fascia elevated but Jamila clamps and were able to gently enter the abdomen with a hemostat without any difficulty followed by 5 mm trocar still having the safety edmond-brown that CO2 was insufflated followed by the camera was identified the cecum at this point I could barely see what appeared to be the tip of the appendix therefore the direct visualization with preemptive local analgesic made a 5 mm trocar in the right upper quadrant that positioning a grasper here we able to elevate the cecal cap and identify the appendix which was inflamed no fibrinous exudate on it intact hyperemic at this point I converted the umbilical port from a 5 to a 12 position and the camera in the right upper quadrant trocar so we could see the entry into the periumbilical area I dilated the tract to accommodate a 12 mm trocar this 5 mm trocar that was removed we then placed the left lower quadrant with preemptive local analgesic on direct visualization the patient was then rotated slightly to the left a little Trendelenburg using the umbilical and right upper quadrant trocar and we were able elevated the cecum identified along the appendix nonruptured no fibrinous exudate and we created a window between the mesoappendix and the cecum and fired a edmond load of the AZRA to remove the appendix and part of the cecal cap the mesoappendix was then clipped with 10 mm clips it was not very prominent and we divided it no bleeding was appreciated the appendix was then placed in an Endopouch and taken out through the umbilical port we then suctioned out the right lower quadrant after repositioning the left millimeter trocar there was some fluid on her pelvis that was suctioned out there also was a prominent right ovary what appeared to be a cystic structure pictures of this were taken so we will tell the patient that next visit with her pinion staker a can evaluate this this point the camera was placed in the right upper quadrant we removed the removed from her left lower quadrant port on the right visualization no bleeding identified similarly the umbilical port without any difficulty and this right upper quadrant fascial stitch of 0 Vicryl [id number] x 2 for the fascia and umbilical area then 4-0 Monocryl subcuticular Steri-Strips applied procedure was tolerated well by the patient estimate blood loss 5 cc Addendum Velvet Petersen physician ambulance assistant was present throughout the procedure and helped the retraction exposure wound closure I talked to her Brenden at [phone] Surgeon Anish Dougherty MD, FACS Server Manager David Estimated Blood Loss 5 Findings Consistent with Post-Op Diagnosis Acute inflamed appendix no fibrous exudate cystic structure right ovary pictures taken some fluid on the cul-de-sac clear in nature Specimens Appendix Drains None Indications Acute appendicitis right lower quadrant pain Description of Procedure merda I attest to the content of the Intraoperative Record and any orders documented therein. Any exceptions are noted below.
--- NOTE | 2025-01-29 08:59 | Anesthesiology Progress Note ---
Date of Service January 29, 2025 Anesthesia Post Procedure Vital Signs Vital Signs: Temp Pulse Pulse Pulse Resp BP BP 01/29/25 08:55 36.5 C 69 18 137/93 01/29/25 08:45 75 14 143/94 H 01/29/25 08:35 66 12 162/98 H 01/29/25 08:25 36.0 C L 88 16 150/96 H 01/28/25 23:38 67 134/87 01/28/25 22:00 65 160/91 H 01/28/25 20:24 36.8 C 65 16 168/101 H 01/28/25 19:52 164/108 H 01/28/25 19:50 01/28/25 19:50 36.5 C 64 16 163/105 H 01/28/25 13:40 36.9 C 63 20 157/97 H 01/28/25 12:12 01/28/25 12:10 78 16 135/99 01/28/25 11:00 163/104 H 01/28/25 10:54 74 19 01/28/25 10:51 62 17 01/28/25 10:48 64 16 01/28/25 10:30 140/94 01/28/25 10:18 66 15 01/28/25 10:06 68 16 01/28/25 10:00 150/98 H 01/28/25 09:57 73 17 01/28/25 09:51 77 19 01/28/25 09:42 68 17 01/28/25 09:30 155/101 H 01/28/25 09:22 80 01/28/25 09:21 92 H 20 01/28/25 09:16 154/98 H 01/28/25 09:07 36.5 C 96 H 18 144/107 H Pulse Ox Pulse Ox O2 Del Method O2 Del Method O2 Flow Rate 01/29/25 08:55 97 Room Air 01/29/25 08:45 97 Room Air 01/29/25 08:35 100 Nasal Cannula 2 01/29/25 08:25 98 Nasal Cannula 3 01/28/25 23:38 01/28/25 22:00 01/28/25 20:24 97 Room Air 01/28/25 19:52 01/28/25 19:50 97 Room Air 01/28/25 19:50 97 Room Air 01/28/25 13:40 97 Room Air 01/28/25 12:12 98 Room Air 01/28/25 12:10 98 Room Air 01/28/25 11:00 01/28/25 10:54 100 01/28/25 10:51 100 01/28/25 10:48 99 01/28/25 10:30 01/28/25 10:18 97 01/28/25 10:06 97 01/28/25 10:00 01/28/25 09:57 98 01/28/25 09:51 98 01/28/25 09:42 98 01/28/25 09:30 01/28/25 09:22 01/28/25 09:21 98 01/28/25 09:16 01/28/25 09:07 98 Room Air Pain Intensity Right Abdomen: Pain Intensity: 6 Transfer of Care Handoff Completed per policy Notes Mental Status: alert / awake / arousable Patient Amnestic to Procedure: Yes Nausea / Vomiting: adequately controlled Pain: adequately controlled Airway Patency, RR, SpO2: stable & adequate BP & HR: stable & adequate Hydration State: stable & adequate Anesthetic Complications: no major complications apparent
[2025-01-29] MEDS ORDERED: oxyCODONE HCL IR 5 MG TAB (IMMEDIATE RELEASE) PO PRN ×2 (09:12)
[2025-01-29 09:13] VITALS: RESP 16; TEMP 98.1
--- NOTE | 2025-01-29 09:44 | Hospitalist Progress Note ---
Date of Service January 29, 2025 Assessment & Plan (1) Appendicitis: Plan: 39-year-old female with past medical history significant for history of acute gastritis, history of diarrhea, history of kidney stone, history of severe dysplasia of cervix, history of anemia, history of general anxiety disorder, history of obsessive-compulsive disorder, rosacea was admitted for appendicitis. Blood pressures running high in the hospital. Patient says since yesterday e vening she noticed right-sided abdominal pain associated with nausea. Currently nausea improved. Denies any fevers. Normal bowel movements. Normal bladder movements. Denies any headache. Denies dizziness. Denies blurred visions or double vision. No earache. No runny nose, no sore throat. No cough. No history of high blood pressure. #Appendicitis She is s/p laparoscopic appendectomy Tolerated the procedure well Advance diet as tolerated pain management per surgery #Hypertension Mostly situational, on average 140-170/100 IV hydralazine required x 1 outpt chart reviewed w/o significant elevation in the last 1-2 years Discussed with pt for close outpt monitoring twice daily and to keep a log of blood pressures, goal is < 140/90 It is highly recommended she follow up with Dr. Carmona within 7-10 days of discharge #Follicle cyst in the right adnexa Recommend outpt BUSINESS EDUCATION PROFESSOR f/u for transvaginal US Dispo: discharge home later this morning I spent a total of 35 minutes coordinating, documenting and providing care for this patient excluding time spent in the performance of separately billed services or time spent by another provider/QHP. Pt was seen and examined in collaboration with Dr. Delvalle, please see addendum Admission and Anticipated Discharge Date Admission Date: January 28, 2025 Supervising Physician Co-Signing Physician Notes I have seen and discussed the case with the collaborating advanced practitioner. I agree with the above progress note. I have reviewed and confirmed the patients medical history, the findings on physical examination, and the patients diagnosis and treatment plan with Pankaj DAMON and agree with the information documented. Ms. Aiken is a 39 yo woman with appendicitis who hospital medicine was consulted for hypertension. This was likely iso acute pain from appendicitis. Pressure stable post op. Patient medically stable s/p procedure. Discuss bp with PCP as op. I have reviewed the advanced practitioner's documentation, and I agree with, and take responsibility for the plan of care Subjective Pt was seen and examined in 315-1. Her was at bedside. She feels much better after surgery and is happy to be eating solid food. She denies f/c/s, chest pain, sob, n/v. We discussed her blood pressure. She typically doesn't have high blood pressure at home, but also doesn't monitor it. She denies a FH of it. We discussed close BP monitoring at discharge. Review of Systems Review of Systems: All systems reviewed & are unremarkable except as noted in HPI & below Physical Exam Physical Exam: Gen: WD/WN, NAD, A&O x3 HEENT: Normocephalic, atraumatic, conjunctivae moist, sclerae anicteric, mucous membranes moist. Lung: Clear to Auscultation bilaterally, no wheezes/rales/rhonchi Heart: Regular rate, regular rhythm, no murmurs, rubs, or gallops Abdomen: Soft, incisions intact Extremities: No edema Skin: Warm, no rash, negative turgor. Results & Data Results & Data Vital Signs (Past 12 Hours) Vital Signs Temp Pulse Pulse Resp BP Pulse Ox O2 Del Method 01/29/25 09:13 36.7 C 69 16 148/91 H 100 Room Air 01/29/25 08:55 36.5 C 69 18 137/93 97 Room Air 01/29/25 08:45 75 14 143/94 H 97 Room Air 01/29/25 08:35 66 12 162/98 H 100 Nasal Cannula 01/29/25 08:25 36.0 C L 88 16 150/96 H 98 Nasal Cannula 01/28/25 23:38 67 134/87 01/28/25 22:00 65 160/91 H O2 Flow Rate 01/29/25 09:13 01/29/25 08:55 01/29/25 08:45 01/29/25 08:35 2 01/29/25 08:25 3 01/28/25 23:38 01/28/25 22:00 Medications Administered Current Inpatient Medications Hydralazine HCl (Hydralazine Hcl 20 Mg/Ml Vial) 5 mg IV Q6H PRN PRN Reason: Hypertension Stop: 02/27/25 21:36 Last Admin: 01/28/25 22:07 Dose: 5 mg Acetaminophen (Ofirmev) 1,000 mg in 100 mls @ 400 mls/hr IV Q8H PRN PRN Reason: Pain Stop: 01/31/25 11:56 Lactated Ringer's (Lr) 1,000 mls @ 80 mls/hr IV .[id number] TATY Stop: 01/30/25 09:11 Morphine Sulfate (Morphine Sulfate 2 Mg/Ml Carp) 1 mg IV Q3H PRN PRN Reason: Pain (1,2,3,4,5) & Pre PT Stop: 02/11/25 11:56 Morphine Sulfate (Morphine Sulfate 2 Mg/Ml Carp) 2 mg IV Q2H PRN PRN Reason: Pain (6,7,8,9,10) Stop: 02/11/25 11:56 Last Admin: 01/28/25 19:50 Dose: 2 mg Ondansetron HCl (Ondansetron Inj 2 Mg/Ml 2 Ml Vial) 4 mg IV Q4H PRN PRN Reason: Nausea And Vomiting Stop: 02/27/25 11:56 Oxycodone HCl (Oxycodone Hcl Ir 5 Mg Tab (Immediate Release)) 5 mg PO Q4H PRN PRN Reason: Moderate Pain (Scale 4, 5, 6) Stop: 02/12/25 09:11 Oxycodone HCl (Oxycodone Hcl Ir 5 Mg Tab (Immediate Release)) 10 mg PO Q4H PRN PRN Reason: Severe Pain (Scale 7, 8, 9,10) Stop: 02/12/25 09:11
[2025-01-29] MEDS: LACTATED RINGER'S 1,000 ML IV SCH (09:50)
[2025-01-29 10:29] VITALS: BP 117/79; PULSE 76; O2SAT 96
--- NOTE | 2025-01-31 09:43 | Discharge Summary ---
Date of Service January 29, 2025 Admission HPI Per Admitting Provider This is a 39yF with a PSH of hysterectomy in 2022 who presents to the [facility] ED on 01/28/25 with complaints of right lower quadrant abdominal pain. Patient reports her pain started yesterday evening abruptly while cooking dinner. It started off to the right side of her abdomen and is now located in the RLQ and suprapubic regions. This was associated with nausea, no vomiting or fevers. Because of her pain she presented to the ER for evaluation. She underwent a CT a/p that revealed findings concerning for uncomplicated appendicitis with appendiceal hyperemia and mild periappendiceal inflammatory stranding. No evidence of perforation or abscess. It also shows enhancing follicular cyst in the right adnexa. Patient denies having experienced pain similar to this before. Principal Diagnosis acute appendicitis , Hypertension Discharge Exam Physical Exam: was asleep when I first walked in this morning was asleep when I first walked in this morning I responded quickly with a light turning on room Is alert coherent resting comfortably The abdomen is a bit softer still has some guarding and some tenderness right lower quadrant right suprapubic area Rest of the abdomen is negative Last blood pressure 2300 was 134/87 Discharge Data Allergies Allergy/AdvReac Type Severity Reaction Status Date / Time No Known Allergies Allergy Verified 03/09/16 01:31 Consultations 01/28/25 11:19 ED Decision to Admit Stat 01/28/25 21:20 Consult Hospitalist Routine Procedures Performed Operation Date: 01/29/25 07:30 Actual Procedures p Laparoscopic Appendectomy(Not Applicable) - Anish Dougherty MD, FACS Ordered Studies 01/28/25 09:28 CT abd pelvis IV con only Stat Hospital Course (1) Appendicitis: This is a 39 who presented to the [facility] ED on 01/28/25 with abdominal pain. Workup in the ED showed a CT a/p concerning for acute appendicitis and a an incidental finding of 2 right sided follicular cysts in the right adnexa, and hypertension(see HPI for full details). The patient was admitted to the hospital and a medicine consult was placed for hypertension. She was ordered prn hydralazine. Patient made NPO at [facility] with and booked for the OR. On 01/29/25 the patient went to the OR with Dr Dougherty for a laparoscopic appendectomy. The patient tolerated the procedure well, see operative report for full details. Post operatively the patient's diet was advanced, pain managed on prn meds, incisions clean/dry/intact, and non hypertensive. Post procedure the patient was deemed stable for discharge to home. The patient was given discharge instructions, follow up recommendations, return precautions and a prescription for narcotic pain medication. Total Time Total Time Spent Total Time Spent (In Minutes): 15 Discharge Plan Discharge Items Patient Disposition: Home - Self-Care Reason For Visit: APPENDICITIS, FOLLICULAR CYSTS, RLQ PAIN Discharge Diagnosis: laparoscopic appendectomy follicular cysts Activity: Per Instructions section Lifting: No more than 10 pounds Bathing Comment: may shower starting 01/30/25; no soaking in tubs/pools x 2 weeks Exercise/Sports: Wait until after follow-up appointment Driving/Machine Use: no driving while on narcotics for pain Non-emergency contact: Surgeon Call non-emergency contact if: you have any medication questions, your symptoms worsen, your pain is not controlled, your pain is worsening, you have a fever, your temperature is above 101.5, your wound has increased redness, your wound has increased drainage and your wound pain has increased Follow-up/Referrals: Anish Dougherty MD, FACS [Surgeon] - (please call to schedule follow up in the office within 1 week) Tre Carmona MD [Primary Care Provider] - (Please follow up with Dr. Carmona in 7-10 days.) Diet: Regular Addtl Attending Provider Instructions: SPECIAL CARE INSTRUCTIONS: * You will have small white bandages on that are over your incisions called steri strips. You may shower with these on. They will tend to fall off on their own within 7-10 days. * You may shower 01/30/25 . NO soaking in pools or baths for 2 weeks * No lifting greater than 10lbs. No strenuous exercise until cleared by surgeon. Light walking is accepted. * No driving while taking narcotic pain medication; wait at least 3 days * No drinking alcohol while taking narcotic pain medication * May use Ibuprofen/Tylenol over the counter for pain as tolerated. Do not exceed 3grams of Tylenol per 24 hours * Expect some swelling and bruising. * Diet- you may resume your regular diet Call your doctor if: * Temperature above 101 degrees, nausea/vomiting, fever/chills * Pain not relieved by pain medicine ordered * There is increased drainage or redness from any incision * You have any unanswered questions or concerns [phone]. FOLLOW UP VISIT: If not already scheduled, please call the office for a follow-up visit. Office Please also follow up with your fruit trimmer regarding right sided follicular cysts seen on CT scan imaging and intraoperatively You have had some elevated blood pressures during your hospitalization. Please monitor them twice daily as an outpatient. If you notice that your blood pressure consistently >140/90 please see your primary care provider Addtl Stitch Wheeler Provider Instructions: During your hospital stay your blood pressure was consistently elevated. When you are discharged home please monitor your blood pressure twice daily, 1st thing in the morning and a random time in the afternoon. Please keep a log of your blood pressures. Goal Blood pressure for you is less than 140/90. If you consistently find your blood pressure above 140/90 please follow up with your primary care provider for further monitoring. It is recommended you see your primary care provider within 7-10 days of discharge. On imaging and intraoperatively you were found to have an enlarged Right cystic ovary. It is recommended you have an outpatient transvaginal ultrasound for further follow up. Pending Studies at Discharge: Yes Studies:: surgical pathology Stand-Alone Forms: [facility], Smoking Cessation Medications and DC Order Prescriptions: New oxycodone 5 mg tablet 5 - 10 mg PO .[id number] PRN (Reason: pain, for initial therapy, max 6 tabs per day) Qty: 12 0RF Discharge Orders: Discharge Order (Routine); Ordered 01/29/25 Ordered By: Velvet Hernández/Other Patient Handouts: What Is Appendicitis? Admission Data Admit Date/Time: 01/28/25 11:36 Attending Provider: Anish Dougherty Admit Provider: Anish Dougherty Primary Care Provider: Tre Carmona Other Providers: Kojo Jose Other Interventions: Discharge Summary Assessment (RN) Last Done: 01/29/25 10:37 Coding Level of Care Code 96028 IN/OBS DISCH 30 MIN/LESS Diagnoses Appendicitis K37
== END 2025-01-29 11:14 | disposition home or self-care (01) | DRG 399 ==
LOC: ED 08:55 → EDINP 11:36 → 3E 14:01